=== PATIENT | male | born 1970 | race Caucasian/White ===

== ENCOUNTER → 2019-05-26 | Outpatient (CLI) | payer OTHER, SELFPAY ==
[2019-05-21 09:34] VITALS: BMI 41.4
--- NOTE | 2019-05-26 | ASPIG_PTH ---
PATIENT: DESIRAE BRIGGS Jr. LOC: U#:[id number] AGE/SX: 48/M ROOM: RE05/26/[address]: Dr. Bryan Michel MD : 1970 BED: DIS: 05/26/2019 SPEC #: [id number] RECD: 05/26/19 13:33 STATUS: DASHAWN RENapoleon #: [id number] RATNA: 05/26/19 00:[address]: Bryan Michel DEPT: CYTOLOGY RECD BY: Krunal Pennington ENTERED: 05/26/19 13:33 SP TYPE: ASP OUT OTHR DR: Dr. Jayden Love, DO Tissues: Thyroid gland, NOS Procedures: FNA Specimen Adequacy Special Stain Group II Surgery Specimen Level IV Cytology Other HEADER OPERATION: Ultrasound-guided left thyroid biopsy/aspiration PRE-OP DIAGNOSIS: Thyroid nodule TISSUE SUBMITTED: Ultrasound-guided left thyroid biopsy/aspiration (smears, fluid for cytology and cell block) DIAGNOSIS CYTOLOGY Ultrasound guided fine needle aspiration of left thyroid nodule (smears and cell block): Adequate for evaluation. Negative, consistent with benign follicular nodule. AM:ling 05/27/19 COMMENT The specimen is evaluated at the time of biopsy by Dr. Saini. Immediate Evaluation: Pass 1 - Follicular cells present. Pass 2 - Follicular cells present. Pass 3 - Follicular cells present. CYTOLOGY STUDY Slides are reviewed. CYTOLOGY GROSS Pass 1 - Received is 0.25 ml of reddish fluid labeled with the patient's name, and designated left thyroid. Five imprints and three paps are made from the submitted fluid and the rest is added to CytoLyt for cell block preparation. Submitted for cytology study. Pass 2 - Received is 0.25 ml of reddish fluid labeled with the patient's name, and designated left thyroid. Four imprints and three paps are made from the submitted fluid and the rest is added to CytoLyt for cell block preparation. Submitted for cytology study. Pass 3 - Received is 0.25 ml of reddish fluid labeled with the patient's name, and designated left thyroid. Four imprints and one pap are made from the submitted fluid and the rest is added to CytoLyt for cell block preparation. Submitted for cytology study. / AM:ling 05/26/19 TC:5 CPT: 76721, 23887 x2, 17788
--- NOTE | 2019-05-26 11:55 | US_ITS ---
PROCEDURE: ULTRASOUND GUIDED LEFT THYROID FNA/BIOPSY. DATE: May 26, 2019 INDICATION: Male, 48 years old. Ascites. PHYSICIAN: Bryan Michel M.D. MEDICATIONS: 2% lidocaine administered subcutaneously for local anesthesia. ACCESS SITE: Left - anterior approach. NEEDLE: 25-gauge FNA needle. SPECIMEN: Multiple FNA specimen collected and given to pathology. EBL: None. COMPLICATIONS: None immediate. PROCEDURE: The risks, benefits, and alternatives to the procedure were explained to the patient. The specific risk of hemorrhage requiring further treatment or intervention was detailed and accepted. Written informed consent was obtained. The patient was brought into the ultrasound room and placed in the supine position on the stretcher. An appropriate entry site was identified. The overlying skin was prepped and draped in the usual sterile fashion. 2% lidocaine was administered subcutaneously for local anesthesia. Under ultrasound guidance, a 25-gauge FNA needle was advanced into the lesion. Aspiration was performed and the needle was withdrawn. A total of 4 passes were performed with specimen collected and given to the pathologist who was present during the procedure. Hemostasis was achieved with manual compression. Repeat ultrasound images of the biopsy area was performed which demonstrated no gross bleeding or hematoma. An antibiotic ointment dressing was placed and the patient was given an icepack. The patient tolerated the procedure well without immediate complications. The patient was discharged in stable condition. US/FNA 1st Biopsy w/ US IMPRESSION: Successful ultrasound-guided left thyroid nodule FNA/biopsy, as described above. Electronically Signed: Morgan Kaiser, at 13:56 EST , Service support ,
--- NOTE | 2019-05-26 12:56 | PCM.OPRPT ---
Problem List (1) Solitary thyroid nodule Status: Acute Report of Operation Date of Procedure: 05/26/19 Pre-Operative Diagnosis: Solitary solid left thyroid nodule Post-Operative Diagnosis: Same Surgery/Procedure Performed:: Ultrasound-guided fine-needle aspiration left thyroid nodule Description of Surgical Findings:: Timeout and informed consent was obtained. I attempted this procedure in the office but was not able to visualize it using our ultrasound. The patient was subsequently taken to the ultrasound suite as scheduled. Neck was prepped with chlorhexidine. Ultrasound was performed demonstrating the nodule in question. Under ultrasound guidance 2 cc of 1% lidocaine was used as a local anesthetic. Then under ultrasound guidance a 25-gauge needle was advanced into the lesion and a rapid [id number] motion was performed. Specimen was obtained and handed to Dr. Saini pathology. A total of 4 separate passes were performed. 3 of these separate passes I felt that I was targeted spot on. He tolerated the procedure well. The neck was cleansed. Band-Aid was applied. He was given activity wound care instructions. He will be notified of cytology results as they become available. Bryan Michel M.D., F.A.C.S. Type of Anesthesia:: Local
== END | disposition home or self-care (01) ==
LOC: US 11:48
PROVIDERS: PCP Student in an Organized Health Care Education/Training Program; Referring Provider Surgery; Visit Provider Surgery
DX: E04.1 Nontoxic single thyroid nodule (principal)
CPT/HCPCS: 10005; 88161; 88172; 88305; 88313

== ENCOUNTER → 2019-10-15 | Outpatient (CLI) | payer OTHER, SELFPAY | END | disposition home or self-care (01) | LOC: LAB 17:14 → PSN 17:15 → MTDU 10-16 11:18 | PROVIDERS: PCP Student in an Organized Health Care Education/Training Program; Visit Provider Nurse Practitioner Family | DX: Z11.59 Encounter for screening for other viral diseases (principal); Z20.828 Contact with and (suspected) exposure to other viral communicable diseases | CPT/HCPCS: 87635; 87804; 87807; G2023; U0003 ==

== ENCOUNTER → 2020-05-07 12:48 | Outpatient (CLI) | payer OTHER, SELFPAY ==
--- NOTE | 2020-05-07 12:51 | US_ITS ---
STUDY: THYROID ULTRASOUND REASON FOR EXAM: Male, 49 years old. NODULE TECHNIQUE: Ultrasound evaluation of the thyroid was performed with real-time and static billings-scale imaging. COMPARISON: None. FINDINGS: RIGHT LOBE: The right lobe of the thyroid gland measures 4.5 x 1.9 x 1.8 cm. There is a homogeneous echotexture. There are no demonstrated solid, cystic or complex lesions. LEFT LOBE: The left lobe of the thyroid gland measures 4.2 x 1.7 x 2.2 cm. There is a homogeneous echotexture. Nodule 1:13 x 13 x 13 mm solid isoechoic wider than tall ill-defined marginated nodule with no echogenic foci (TR 3) (likely consistent with an adenoma. ISTHMUS: The isthmus measures 3 mm . The regional lymph nodes are normal. US/Thyroid IMPRESSION: 13 mm probable adenoma in the posterior left lobe. Electronically Signed: Janes Diaz MD at 11:22 EST Tel , Service support ,
== END ==
PROVIDERS: PCP Student in an Organized Health Care Education/Training Program; Referring Provider Surgery; Visit Provider Surgery
DX: E04.1 Nontoxic single thyroid nodule (principal)
CPT/HCPCS: 76536

== ENCOUNTER 2020-12-24 09:54 | Day surgery (SDC) | payer OTHER, SELFPAY ==
[2020-12-24] VITALS (7 sets, daily range): BP systolic 134–146; BP diastolic 81–89; PULSE 59–70; RESP 16; TEMP 36.1–36.7; O2SAT 95–99; BMI 41.2
[2020-12-24] MEDS: Lactated Ringers 1,000 ML 100 ML IV (10:40)
--- NOTE | 2020-12-24 10:53 | HP.PCM_ITS ---
HPI - General HPI Narrative DESIRAE BRIGGS, is a 50 M who presents today for a screening colonoscopy. He had one 5 years prior with no findings. He has a family history of colon cancer in his mother. He is asymptomatic. He has not had COVID-19. He has been vaccinated. [facility] Medical History (Updated 12/24/20 @ 10:[address] Bryan Michel MD) diabetes mellitus type 2 Former smoker GERD (gastroesophageal reflux disease) Hyperlipemia CHERYL on CPAP Osteoarthritis Solitary thyroid nodule Home Medications pravastatin 20 mg PO QHS 09/02/13 [History Last Taken 01/04/15] pantoprazole 40 mg PO BID 01/05/15 [History Last Taken 01/05/15] alum-mag hydroxide-simeth 15 ml PO Q4H PRN PRN #1 bottle 01/06/15 [Rx Last Taken Unknown] cholecalciferol (vitamin D3) 100 mcg (4,000 unit) capsule 4,000 unit PO DAILY 05/13/19 [History Last Taken Unknown] lactobacillus combination no.8 3 billion cell capsule 3,000 mmu cells PO DAILY 05/13/19 [History Last Taken Unknown] verapamil 180 mg 24 hr capsule,extended release mg PO 05/13/19 [History Last Taken 12/23/20] sitagliptin [Januvia] 100 mg PO DAILY 12/24/20 [History Last Taken Unknown] Allergy/AdvReac Type Severity Reaction Status Date / Time No Known Allergies Allergy Verified 12/24/20 10:18 Family History Mother Colon cancer Hypertension Father Heart disease Pacemaker Daughter Cancer thyroid Surgical History History of appendectomy (~1976) History of cholecystectomy (~1995) History of colonoscopy (~09/2015) History of hernia repair (~2002) History of surgical removal of ganglion cyst (~1999) History of tonsillectomy and adenoidectomy (~1970) Status post biopsy of thyroid gland (~05/2019) ROS Constitutional Constitutional: Reports systems reviewed and no addt'l complaints, except as documented Cardiovascular Cardiovascular: Denies chest pain Respiratory/Chest Respiratory/Chest: Denies shortness of breath at rest Gastrointestinal Gastrointestinal: Denies abdominal pain, change in bowel habits, hematochezia or melena Vital Signs Vital Signs Vital Signs: 12/24/20 10:23 Temperature 98.0 F Temperature Source Temporal Pulse Rate 70 Respiratory Rate 16 Respiratory Pattern Normal Blood Pressure Source Monitor Blood Pressure Position Sitting Blood Pressure Location Left Forearm Pulse Ox 99 Oxygen Delivery Method Room Air Weight Weight: 321 lb 6.943 oz Body Mass Index (BMI) 41.2 Physical Exam Const alert, oriented x3 and no apparent distress General Appearance: cooperative and comfortable Eyes General Eye: normal appearance of both eyes Neck General: normal visual inspection Chest inspection of chest normal Resp Effort and Inspection: able to speak in complete sentences and symmetric chest movement Auscultation: clear to auscultation bilaterally Cardio regular rate and regular rhythm GI soft to palpation, non-tender and non-distended Extremity no calf tenderness Neuro oriented x3 Psych thought process normal Assessment & Plan Assessment/Plan (1) Screening for intestinal cancer: PLAN: 50-year-old gentleman with family history of colon cancer in his mother. He presents for screening colonoscopy via open access. He is aware of the technique, benefit, risk, alternatives. He has had an opportunity to ask and have questions answered. We will proceed as noted. Bryan Michel M.D., F.A.C.S.
[2020-12-24 10:55] LABS: Bedside Glucose 130 mg/dL (70-110)
--- NOTE | 2020-12-24 11:49 | OP.COLON_ITS ---
Patient Name: Earl Norton Procedure Date: 12/24/2020 11:24 AM Date of : 1970 Age: 50 Procedure: Colonoscopy Indications: Family history of colon cancer in a first-degree relative Providers: Bryan Michel MD Medicines: See the Anesthesia note for documentation of the administered medications Patient Profile: Last Colonoscopy: 5 years ago. Complications: No immediate complications. Procedure: Pre-Anesthesia Assessment: - Prior to the procedure, a History and Physical was performed, and patient medications and allergies were reviewed. The patient's tolerance of previous anesthesia was also reviewed. The risks and benefits of the procedure and the sedation options and risks were discussed with the patient. All questions were answered, and informed consent was obtained. Prior Anticoagulants: The patient has taken no previous anticoagulant or antiplatelet agents. ASA Grade Assessment: II - A patient with mild systemic disease. After reviewing the risks and benefits, the patient was deemed in satisfactory condition to undergo the procedure. After I obtained informed consent, the scope was passed under direct vision. Throughout the procedure, the patient's blood pressure, pulse, and oxygen saturations were monitored continuously. The adult colonoscope was introduced through the anus and advanced to the cecum, identified by appendiceal orifice and ileocecal valve. The colonoscopy was performed without difficulty. The patient tolerated the procedure well. The quality of the bowel preparation was fair. The ileocecal valve and the appendiceal orifice were photographed. Scope In: 11:29:22 AM Scope Withdrawal Time 0 hours 8 minutes 38 seconds Scope Out: 11:44:25 AM Total Procedure Duration Time 0 hours 15 minutes 3 seconds Findings: The digital rectal exam findings include non-thrombosed external hemorrhoids, non-thrombosed internal hemorrhoids and internal hemorrhoids that prolapse with straining, but spontaneously regress to the resting position (Grade II). Pertinent negatives include normal prostate (size, shape, and consistency). A few diverticula were found in the sigmoid colon. The exam was otherwise without abnormality. Impression: - Preparation of the colon was fair. - Non-thrombosed external hemorrhoids, non-thrombosed internal hemorrhoids and internal hemorrhoids that prolapse with straining, but spontaneously regress to the resting position (Grade II) found on digital rectal exam. - Diverticulosis in the sigmoid colon. - The examination was otherwise normal. - No specimens collected. Recommendation: - Discharge patient to home. - Resume previous diet. - Continue present medications. - Repeat colonoscopy in 5 years for surveillance. Procedure Code(s): --- Professional --- 97766, Colonoscopy, flexible; diagnostic, including collection of specimen(s) by brushing or washing, when performed (separate procedure) Diagnosis Code(s): --- Professional --- K64.1, Second degree hemorrhoids K64.4, Residual hemorrhoidal skin tags Z80.0, Family history of malignant neoplasm of digestive organs K57.30, Diverticulosis of large intestine without perforation or abscess without bleeding CPT copyright 2017 [employer]. All rights reserved. The codes documented in this report are preliminary and upon residential sales consultant review may be revised to meet current compliance requirements. Bryan Michel MD 12/24/2020 11:49:42 AM This report has been signed electronically. Number of Addenda: 0 Note Initiated On: 12/24/2020 11:24 AM
--- NOTE | 2020-12-24 11:51 | OP.CCLET_ITS ---
12/24/2020 Jayden Love [address] [place] [address] Re : Colonoscopy procedure for Earl Norton Dear Dr. Love This procedure was performed on Thursday, December 24, 2020. My impressions and recommendations are as follows: Impressions : - Preparation of the colon was fair. - Non-thrombosed external hemorrhoids, non-thrombosed internal hemorrhoids and internal hemorrhoids that prolapse with straining, but spontaneously regress to the resting position (Grade II) found on digital rectal exam. - Diverticulosis in the sigmoid colon. - The examination was otherwise normal. - No specimens collected. Recommendations : - Discharge patient to home. - Resume previous diet. - Continue present medications. - Repeat colonoscopy in 5 years for surveillance. My findings are described in the full procedure note, which is enclosed. If I can be of further assistance, please feel free to contact me at Doctor phone number(s): Work: . Sincerely, Bryan Michel MD 12/24/2020 11:49:42 AM This report has been signed electronically.
== END 2020-12-24 12:44 | disposition home or self-care (01) ==
LOC: EN 09:57 → AC 09:57
PROVIDERS: PCP Student in an Organized Health Care Education/Training Program; Referring Provider Student in an Organized Health Care Education/Training Program; Visit Provider Surgery
PROC: 0DJD8ZZ Inspection of Lower Intestinal Tract, Via Natural or Artificial Opening Endoscopic (ICD-10-PCS; CPT 45378; principal; 2020-12-24 10:55)
DX: Z12.11 Encounter for screening for malignant neoplasm of colon (principal); K57.30 Diverticulosis of large intestine without perforation or abscess without bleeding; K64.1 Second degree hemorrhoids; Z80.0 Family history of malignant neoplasm of digestive organs; E11.9 Type 2 diabetes mellitus without complications; K21.9 Gastro-esophageal reflux disease without esophagitis; E78.5 Hyperlipidemia, unspecified; M19.90 Unspecified osteoarthritis, unspecified site; G47.30 Sleep apnea, unspecified; Z79.899 Other long term (current) drug therapy; Z87.891 Personal history of nicotine dependence
CPT/HCPCS: 45378; 82962; J7120

== ENCOUNTER → 2022-01-13 | Outpatient (CLI) | payer OTHER, SELFPAY ==
[2022-01-13 16:05] LABS: Absolute Lymphocyte Count 2.89 X10^3/uL (0.83-4.51); Absolute Neutrophil Count 7.6 X10^3/uL (2.0-7.7); Basophil# 0.05 X10^3/uL; Basophil% 0.4 % (0-1); Eosinophils% 0.9 % (0-5); Hematocrit 50.2 % (40-54); Lymphocyte # 2.89 X10^3/ul (0.83-4.51); Lymphocyte % 25.2 % (19-41); Mean Corp Hgb Conc 33.9 g/dL (32-36); Mean Corpuscular Hgb 31.4 pg (27.0-32.0); Mean Corpuscular Volume 92.8 fL (80-94); Mean Platelet Vol. 11.3 fl (6.2-12.0); Monocyte# 0.81 X10^3/uL; Monocyte% 7.1 % (0-10); NRBC Flagged by Analyzer 0 % (0-5); Neutrophil # 7.56 X10^3/uL (2.7-7.7); Platelet Count 175 K/mm3 (150-450); RBC Distribution Width CV 12.9 % (11.6-14.6); RBC Distribution Width SD 44.2 fl (35.1-43.9); Red Blood Count 5.41 M/mm3 (4.6-6.2); White Blood Count 11.5 K/mm3 (4.4-11.0)
[2022-01-13 16:17] LABS: International Normalized Ratio 1.2; Prothrombin Time (Protime)PT. 14.6 SECONDS (11.7-14.9)
[2022-01-13 16:20] LABS: Erythrocyte Sedimentation Rate 24 mm/hr (0-20)
[2022-01-13 16:33] LABS: AST(SGOT) 53 U/L (15-37); Alanine Aminotransfer ALT/SGPT 74 U/L (16-61); Alkaline Phosphatase 213 U/L (45-117); Anion Gap 7 (5-15); BUN 14 mg/dL (7-18); BUN/Creat Ratio 15.1 RATIO (10-20); CRP 6.26 mg/L (0.0-3.0); Calcium,Total 9.2 mg/dL (8.5-10.1); Chloride 107 mmol/L (98-107); Creatinine, Serum 0.93 mg/dL (0.70-1.30); EST Glomerular Filtration Rate 90 mL/min (>60); Est Glom Filt Rate - Afr Amer 109 mL/min (>60); Ferritin 96 ng/mL (26-388); Globulin 4.1 g/dL (2.2-4.2); Glucose 95 mg/dL (74-106); LDH 147 U/L (87-241); Potassium 3.8 mmol/L (3.5-5.1); Protein, Total 8.1 g/dL (6.4-8.2); Sodium Level 140 mmol/L (136-145)
[2022-01-13 18:09] LABS: HIV - WCH Non-Reactive (Nonreactive)
[2022-01-16 15:07] LABS: Anti-Centromere B Ab <0.2 AI (0.0-0.9); Anti-Chromatin <0.2 AI (0.0-0.9); Anti-Jo <0.2 AI (0.0-0.9); Anti-Scleroderma-70 AB <0.2 AI (0.0-0.9); RNP Ab 0.3 AI (0.0-0.9); SJOGREN'S Anti-SS-A test < 0.2 AI (0.0-0.9); SJOGREN'S Anti-SS-B test < 0.2 AI (0.0-0.9); Smith Ab <0.2 AI (0.0-0.9)
[2022-01-16 15:45] LABS: Anti-Mitochondrial AB <20.0 Units (0.0-20.0); Anti-dsDNA Ab <1 IU/mL (0-9)
[2022-01-17 21:07] LABS: Angiotensin Convert Enzyme 31 U/L (14-82); Ceruloplasmin 22.9 mg/dL (16.0-31.0); Cytoplasmic Ab (C-ANCA) <1:20 titer (Neg:<1:20); HEPATITIS B SURFACE AG Negative (Negative); Hep C Antibodies <0.1 s/co ratio (0.0-0.9); Hepatitis A IgM Antibody Negative (Negative); Hepatitis B Core AB IgM Negative (Negative)
[2022-01-18 09:03] LABS: Anti-Smooth Muscle ABS 12 Units (0-19)
[2022-01-18 09:04] LABS: AFP, Tumor Marker 3.4 ng/mL (0.0-8.4); Copper, Serum or Plasma 95 ug/dL (69-132); Haptoglobin 104 mg/dL (29-370); Perinuclear Ab (P-ANCA) <1:20 titer (Neg:<1:20)
== END | disposition home or self-care (01) ==
LOC: LAB 15:19
PROVIDERS: PCP Student in an Organized Health Care Education/Training Program; Visit Provider Internal Medicine Gastroenterology
DX: K76.0 Fatty (change of) liver, not elsewhere classified (principal)
CPT/HCPCS: 36415; 80053; 80074; 82105; 82140; 82164; 82390; 82525; 82728; 83010; 83036; 83516; 83615; 85025; 85610; 85652; 86140; 86225; 86235; 86256; 86703

== ENCOUNTER → 2022-01-20 | Outpatient (CLI) | payer OTHER, SELFPAY ==
--- NOTE | 2022-01-20 08:11 | US_ITS ---
STUDY: ABDOMINAL ULTRASOUND - RIGHT UPPER QUADRANT REASON FOR VISIT: Male, 51 years old . Fatty infiltration of the liver. TECHNIQUE: Ultrasound evaluation of the right upper quadrant was performed with real-time and static billings-scale imaging. TECHNICAL QUALITY: Adequate. COMPARISON: None. FINDINGS: Liver: The liver measures 17 cm. There is increased echogenicity consistent with fatty infiltration. The bile ducts are within normal limits. There is hepatic color flow. The direction of portal flow is hepatopetal. There is no demonstrated mass lesion. Gallbladder: The patient is status post cholecystectomy. Common Bile Duct (C.B.D.): The common bile duct measures 5.1 mm. Pancreas: Normal size of the head, body of the pancreas. The tail portion is obscured due to overlying bowel gas. There is normal echogenicity of the pancreas. There is no demonstrated pancreatic mass or cyst. Right Kidney: Normal size of the right kidney. The right kidney measures 11.6 cm x 6.3 cm x 5.1 cm. Normal renal cortex. The right cortex measures 1.5 cm. There is no demonstrated renal mass or cyst. There is no right hydronephrosis. US/Abdomen Limited IMPRESSION: Fatty infiltration of the liver. Status post cholecystectomy. Electronically Signed: Morgan Kaiser MD at 10:52 EDT ,
--- NOTE | 2022-01-20 08:11 | US_ITS ---
STUDY: ABDOMINAL ULTRASOUND - ELASTOGRAPHY REASON FOR VISIT: Male, 51 years old. Fatty infiltration of the liver. TECHNIQUE: Liver stiffness measurements were obtained on a [employer] RS 85 ultrasound machine using a CA 1-7 probe following the SRU guidelines. 3 measurements were obtained using a 2-D-SWE method. The IQR/M was 19% suggesting a quality data set. TECHNICAL QUALITY: Adequate. COMPARISON: Comparison is made with prior study done earlier in the day. FINDINGS: Liver: There is evidence of fatty infiltration of the liver. Median liver stiffness measured 8 kPa. US/Elastography Parenchyma/Organ IMPRESSION: Liver stiffness measures 8 kPa compatible with F2-F3 (Mild to moderate liver fibrosis) Metavir score. Electronically Signed: Morgan Kaiser MD at 10:55 EDT ,
== END | disposition home or self-care (01) ==
LOC: US 08:07
PROVIDERS: PCP Student in an Organized Health Care Education/Training Program; Referring Provider Internal Medicine Gastroenterology; Visit Provider Internal Medicine Gastroenterology
DX: K76.0 Fatty (change of) liver, not elsewhere classified (principal)
CPT/HCPCS: 76705; 76981

== ENCOUNTER 2022-12-25 05:13 | Emergency (ER) | payer OTHER, SELFPAY ==
[2022-12-25 05:14] VITALS: BP 173/95; PULSE 65; RESP 16; TEMP 36.7; O2SAT 95; BMI 39.4
--- NOTE | 2022-12-25 05:28 | EDS_ITS ---
HPI <Dr. Denis Martin MD - Last Filed: 12/25/22 08:07> History of Present Illness Chief Complaint: Chest Pain Informant: patient Narrative Narrative: Patient presents at 5 AM for intermittent episodes of left-sided chest discomfort that have been off and on for the past week or more. The episodes last 10-20 minutes typically, feels like sharp pain and pressure at the same time, can be associated with facial flushing, but no dyspnea, nausea, vomiting, diaphoresis, lightheadedness, syncope, or arm/jaw discomfort. He has had several episodes this morning, and he was concerned because he checked his blood pressure at home and it was in the 170s as it is here, which is unusual for him. Usually has good blood pressure. No history of heart disease but that is what he is concerned about. Episodes seem to occur at random. Not necessarily with exertion. They have occurred while he was just sitting there at times. He does not have any regular symptoms or issues when he walks up a flight of steps, lightly exerts himself, etc. No recent leg pain or swelling, long travel/immobilization/hospitalization/surgery. No history of DVT or PE. His dad recently had a stent in his 70s. Patient states his doctor scheduled him for a stress test this January as a routine because it has been several years since he has had 1 and he has some risk factors. CVD Risk Factors: Positive for Diabetes, Hypercholesterolemia and Smoking (Former); Negative for Hypertension or Family History 1' </=55 PE Risk Factors: Negative for Recent Travel/Surgery, Recent Immobilization, Kylie or DVT or PE, Cancer or OCP + Smoking + >/=35 [facility] <Dr. Denis Martin MD - Last Filed: 12/25/22 08:07> [facility] Medical History Aortic valve disorder diabetes mellitus type 2 Fatty infiltration of liver Former smoker GERD (gastroesophageal reflux disease) Hyperlipemia LFT elevation Mitral valve disorder Obesity, Class III, BMI 40-49.9 (morbid obesity) CHERYL on CPAP Osteoarthritis Solitary thyroid nodule Home Medications pravastatin 10 mg tablet 20 mg PO QHS 09/02/13 [History Last Taken 01/04/15] pantoprazole 40 mg tablet,delayed release 40 mg PO BID 10/06/15 [History Last Taken 01/05/15] cholecalciferol (vitamin D3) 100 mcg (4,000 unit) capsule 4,000 unit PO DAILY 05/13/19 [History Last Taken Unknown] lactobacillus combination no.8 3 billion cell capsule (Adult Probiotic) 3,000 mmu cells PO DAILY 05/13/19 [History Last Taken Unknown] verapamil 180 mg 24 hr capsule,extended release 180 mg PO DAILY 05/13/19 [History Last Taken 12/23/20] sitagliptin phosphate 100 mg tablet (Januvia) 100 mg PO DAILY 12/24/20 [History Last Taken Unknown] acyclovir 400 mg tablet 400 mg PO BID 11/22/21 [History Last Taken Unknown] aspirin 81 mg tablet,delayed release (Adult Aspirin Regimen) 81 mg PO DAILY 11/22/21 [History Last Taken Unknown] dexamethasone sodium phosphate 0.1 % eye drops 1 drp otic (ear) ONCE 11/22/21 [History Last Taken Unknown] empagliflozin 25 mg tablet (Jardiance) 25 mg PO QAM 11/22/21 [History Last Taken Unknown] Allergy/AdvReac Type Severity Reaction Status Date / Time No Known Allergies Allergy Verified 12/25/22 05:16 Family History (Updated 11/22/21 @ 15:43 by Geeta Stuart) Mother Colon cancer Hypertension Father Heart disease Pacemaker Daughter Cancer thyroid Grandmother Lung cancer CVA (cerebral vascular accident) Aunt Diabetes Surgical History History of appendectomy (~1976) History of cholecystectomy (~1995) History of colonoscopy (~09/2015) History of esophagogastroduodenoscopy (EGD) History of hernia repair (~2002) History of surgical removal of ganglion cyst (~1999) History of tonsillectomy and adenoidectomy (~1970) Status post biopsy of thyroid gland (~05/2019) Social History Smoking Status: Former smoker alcohol intake: never substance use type: does not use ROS <Dr. Denis Martin MD - Last Filed: 12/25/22 08:07> ROS ED Constitutional Constitutional ED: Denies chills or fever(s) Eyes Eyes: Denies change in vision or diplopia ENT ENT ED: Reports other Details: facial flushing ; Denies rhinorrhea or sore throat Cardiovascular Cardiovascular: Reports chest pain; Denies palpitations Respiratory/Chest Respiratory/Chest: Denies cough or dyspnea Gastrointestinal Gastrointestinal: Denies abdominal pain, diarrhea, nausea or vomiting Genitourinary Genitourinary ED: Denies dysuria or hematuria Musculoskeletal Musculoskeletal: Denies back pain or neck pain Integumentary Denies abscess or rash Neurologic Neurologic: Denies headache(s), paresthesias or weakness Psychiatric Psychiatric: Denies anxiety or suicidal thoughts EXAM <Dr. Denis Martin MD - Last Filed: 12/25/22 08:07> Physical Exam Const Vital Signs: 12/25/22 05:14 12/25/22 05:18 12/25/22 05:27 Temperature 98.1 F Temperature Source Temporal Pulse Rate 65 Respiratory Rate 16 Respiratory Effort Normal Blood Pressure 173/95 H Blood Pressure Mean 121 Pulse Ox 95 Oxygen Delivery Method Room Air 12/25/22 07:38 Temperature Temperature Source Pulse Rate 63 Respiratory Rate 16 Respiratory Effort Blood Pressure 146/81 H Blood Pressure Mean 102 Pulse Ox 94 Oxygen Delivery Method Room Air Positive well nourished and well developed General Appearance ED: well developed and NAD HEENT Reports moist mucous membranes normocephalic and atraumatic Eyes PERRL and EOMs intact bilaterally Neck full ROM and supple Chest Wall inspection of chest normal and palpation of chest normal Resp normal respiratory effort and clear to auscultation bilaterally Cardio regular rate and regular rhythm Rate: Negative for tachycardic Heart Sounds: murmur systolic II/ soft left sternal border GI non-tender and non-distended Auscultation: normoactive bowel sounds Palpation: soft Back/Spine no CVA tenderness General Back: other FROM Extremity normal to inspection and no calf tenderness General Extremety ED: Negative for edema, pulses abnormal or tenderness General Extremity: Negative for edema or pulses abnormal Neuro oriented x3, CN's II-XII intact bilaterally and no sensory deficits noted Sensorium / Orientation: awake and alert Motor Exam: strength 5/5 throughout Skin no rashes or lesions noted and no wounds <Osmel López MD - Last Filed: 12/25/22 08:37> Physical Exam Const Vital Signs: 12/25/22 05:14 12/25/22 05:18 12/25/22 05:27 Temperature 98.1 F Temperature Source Temporal Pulse Rate 65 Respiratory Rate 16 Respiratory Effort Normal Blood Pressure 173/95 H Blood Pressure Mean 121 Pulse Ox 95 Oxygen Delivery Method Room Air 12/25/22 07:38 Temperature Temperature Source Pulse Rate 63 Respiratory Rate 16 Respiratory Effort Blood Pressure 146/81 H Blood Pressure Mean 102 Pulse Ox 94 Oxygen Delivery Method Room Air <Dr. Denis Martin MD - Last Filed: 12/25/22 08:07> Heart Score History: Moderately Suspicious ECG: Normal Age: >45 - <65 years Risk Factors: >/= 3 Risk Factors or History of CAD Troponin: </= Normal Limit Score: 4 <Osmel López MD - Last Filed: 12/25/22 08:37> Heart Score Score: 4 MDM <Dr. Denis Martin MD - Last Filed: 12/25/22 08:07> MDM MDM Narrative Medical decision making narrative: Patient has atypical symptoms, unlikely to be unstable angina although it is certainly in the differential diagnosis especially given the patient being a diabetic who are more likely to have unusual symptoms. Therefore cardiac work- up is still obtained, esophageal and musculoskeletal disorders certainly in the differential as well. Although the patient was initially hypertensive in triage 173/95, on recheck without specifically treating it or anything else since the patient's pain went away spontaneously, his blood pressure is 135 systolic. Chest x-ray 1 view my interpretation negative for any acute findings including pneumonia. His troponin is within normal limits. When I reexamined him he said that currently the discomfort is not there but it has been coming and going. I think waiting for 2-hour troponin would be most reasonable, and if negative he can be discharged home with close outpatient follow-up. He is comfortable with that plan, and while waiting for the repeat he is given a dose of hyoscyamine.. His heart score is 4, but this is only because of his risk factors which include the fact that he is a former smoker. Lab Data Attestation: I reviewed the patient's lab results. Labs: Laboratory Results - last 24 hr 12/25/22 12/25/22 05:30 08:00 WBC 8.9 RBC 5.59 Hgb 17.7 H Hct 52.0 MCV 93.0 MCH 31.7 MCHC 34.0 RDW Std Deviation 44.7 H RDW Coeff of Kayce 13.2 Plt Count 136 L MPV 11.7 Immature Gran % (Auto) 0.700 Neut % (Auto) 70.0 Lymph % (Auto) 19.1 Ocean % (Auto) 8.7 Eos % (Auto) 0.9 Baso % (Auto) 0.6 Absolute Neuts (auto) 6.3 Absolute Lymphs (auto) 1.71 Nucleated RBC % 0 Sodium 139 Potassium 3.7 Chloride 106 Carbon Dioxide 27.0 Anion Gap 6 BUN 13 Creatinine 1.03 Estim Creat Clear Calc 95.32 Est GFR (MDRD) Af Amer 97 Est GFR (MDRD) Non-Af 80 BUN/Creatinine Ratio 12.6 Glucose 160 H Calcium 9.1 Troponin I High Sens 5 5 Radiography Diagnostic Testing: Clinical Impression(s) from Imaging Studies Chest X-Ray 12/25/22 05:38 IMPRESSION: Atherosclerotic disease Electronically Signed: Jim Aquino MD at 5:56 EDT , Rhythm Strip Rhythm Strip: Sinus Rhythm Rate: 56 Ectopy: None EKG Initial EKG: Attestation: I personally reviewed and interpreted this EKG as follows: Interpretation: Sinus Rhythm and No Acute Injury Pattern Comments: RSR', otherwise nml Prior EKG tracings: available for review Prior: Unchanged <Osmel López MD - Last Filed: 12/25/22 08:37> [facility] Narrative Medical decision making narrative: Patient has atypical symptoms, unlikely to be unstable angina although it is certainly in the differential diagnosis especially given the patient being a diabetic who are more likely to have unusual symptoms. Therefore cardiac work- up is still obtained, esophageal and musculoskeletal disorders certainly in the differential as well. Although the patient was initially hypertensive in triage 173/95, on recheck without specifically treating it or anything else since the patient's pain went away spontaneously, his blood pressure is 135 systolic. Chest x-ray 1 view my interpretation negative for any acute findings including pneumonia. His troponin is within normal limits. When I reexamined him he said that currently the discomfort is not there but it has been coming and going. I think waiting for 2-hour troponin would be most reasonable, and if negative he can be discharged home with close outpatient follow-up. He is comfortable with that plan, and while waiting for the repeat he is given a dose of hyoscyamine.. His heart score is 4, but this is only because of his risk factors which include the fact that he is a former smoker. Dr. López: Patient endorsed to me by Dr. Martin to check the repeat troponin on this patient having chest pain. I reviewed his previous troponin it was 5. Repeat troponin is also 5 for a delta of 0. Based on his negative troponins, I do feel that he can be discharged safely home with follow-up to his primary care provider. Disposition is discharged as planned. Return instructions to the emergency department were reviewed. Patient is in stable condition. Lab Data Labs: Laboratory Results - last 24 hr 12/25/22 12/25/22 05:30 08:00 WBC 8.9 RBC 5.59 Hgb 17.7 H Hct 52.0 MCV 93.0 MCH 31.7 MCHC 34.0 RDW Std Deviation 44.7 H RDW Coeff of Kayce 13.2 Plt Count 136 L MPV 11.7 Immature Gran % (Auto) 0.700 Neut % (Auto) 70.0 Lymph % (Auto) 19.1 Ocean % (Auto) 8.7 Eos % (Auto) 0.9 Baso % (Auto) 0.6 Absolute Neuts (auto) 6.3 Absolute Lymphs (auto) 1.71 Nucleated RBC % 0 Sodium 139 Potassium 3.7 Chloride 106 Carbon Dioxide 27.0 Anion Gap 6 BUN 13 Creatinine 1.03 Estim Creat Clear Calc 95.32 Est GFR (MDRD) Af Amer 97 Est GFR (MDRD) Non-Af 80 BUN/Creatinine Ratio 12.6 Glucose 160 H Calcium 9.1 Troponin I High Sens 5 5 Radiography Diagnostic Testing: Clinical Impression(s) from Imaging Studies Chest X-Ray 12/25/22 05:38 IMPRESSION: Atherosclerotic disease Electronically Signed: Jim Aquino MD at 5:56 EDT , Discharge Plan Triage Chief Complaint: Chest Pain ED Provider: Denis Martin Dx/Rx/DC Orders Clinical Impression: Intermittent left-sided chest pain Instructions: ED Chest Pain, Uncertain Cause Prescriptions: No Action verapamil 180 mg capsule,ext rel. pellets 24 hr 180 mg PO DAILY cholecalciferol (vitamin D3) 4,000 unit capsule 4,000 unit capsule 4,000 unit PO DAILY Adult Probiotic 3 billion cell capsule 3,000 mmu cells PO DAILY Rx Instructions: administer with a meal acyclovir 400 mg tablet 400 mg PO BID Patient Comments: TAKE 1 TABLET BY MOUTH TWICE DAILY aspirin [Adult Aspirin Regimen] 81 mg tablet,delayed release (DR/EC) 81 mg PO DAILY dexamethasone sodium phosphate 0.1 % drops 1 drp otic (ear) ONCE Jardiance 25 mg tablet 25 mg PO QAM pravastatin 10 MG tablet 20 mg PO QHS Patient Comments: CHOLESTROL LOWERING pantoprazole 40 MG tablet 40 mg PO BID Patient Comments: acid reflux Januvia 100 mg Tablet 100 mg PO DAILY Primary Care Provider: Jayden Love Referrals: Jayden Love DO [Primary Care Provider] - As soon as possible Disposition Disposition: Home, Self Care
--- NOTE | 2022-12-25 05:38 | RAD_ITS ---
INDICATION: chest pain EXAMINATION/TECHNIQUE: X-RAY - XR Chest 1 View COMPARISON: Chest x-ray from 01/05/2015 FINDINGS: LINES/DEVICES: None. LUNGS: No pulmonary edema or focal airspace consolidation. No sizable pleural effusion. No pneumothorax detected. MEDIASTINUM AND CARDIOVASCULAR STRUCTURES: Heart size within normal limits. Atherosclerotic calcifications along aortic arch. BONES AND SOFT TISSUES: No acute findings. RAD/Chest 1 View (Portable) IMPRESSION: Atherosclerotic disease Electronically Signed: Jim Aquino MD at 5:56 EDT ,
[2022-12-25 05:52] LABS: Absolute Lymphocyte Count 1.71 X10^3/uL (0.83-4.51); Absolute Neutrophil Count 6.3 X10^3/uL (2.0-7.7); Basophil# 0.05 X10^3/uL; Basophil% 0.6 % (0-1); Eosinophil# 0.08 X10^3/uL; Eosinophils% 0.9 % (0-5); Hemoglobin 17.7 g/dL (13.0-16.5); Lymphocyte # 1.71 X10^3/ul (0.83-4.51); Lymphocyte % 19.1 % (19-41); Mean Corpuscular Hgb 31.7 pg (27.0-32.0); Mean Platelet Vol. 11.7 fl (6.2-12.0); Monocyte# 0.78 X10^3/uL; Monocyte% 8.7 % (0-10); NRBC Flagged by Analyzer 0 % (0-5); Neutrophil # 6.26 X10^3/uL (2.7-7.7); POSITIVE COUNT YES; Platelet Count 136 K/mm3 (150-450); RBC Distribution Width CV 13.2 % (11.6-14.6); RBC Distribution Width SD 44.7 fl (35.1-43.9); Red Blood Count 5.59 M/mm3 (4.6-6.2); White Blood Count 8.9 K/mm3 (4.4-11.0)
[2022-12-25 05:57] LABS: Differential Indicated SCAN CRITERIA MET
[2022-12-25 06:08] LABS: Anion Gap 6 (5-15); BUN 13 mg/dL (7-18); BUN/Creat Ratio 12.6 RATIO (10-20); Calcium,Total 9.1 mg/dL (8.5-10.1); Chloride 106 mmol/L (98-107); Creatinine, Serum 1.03 mg/dL (0.70-1.30); EST Glomerular Filtration Rate 80 mL/min (>60); Est Glom Filt Rate - Afr Amer 97 mL/min (>60); Estimated Creatinine Clearance 95.32 ml/min; Glucose 160 mg/dL (74-106); Potassium 3.7 mmol/L (3.5-5.1); Sodium Level 139 mmol/L (136-145); Troponin-I HS (w/2H Reflex) 5 pg/mL (3.0-78.0)
[2022-12-25 07:38] VITALS: BP 146/81; PULSE 63; RESP 16; O2SAT 94
[2022-12-25 07:47] LABS: Reflex Troponin-HS? (from REC) Y
[2022-12-25] MEDS: Hyoscyamine Sulfate 0.125 MG Tablet 0.25 MG PO (07:53)
[2022-12-25 08:21] LABS: Troponin-I HS 5 pg/mL (3.0-78.0)
[2022-12-25 09:00] VITALS: BP 134/87; PULSE 78; RESP 16; O2SAT 98
== END 2022-12-25 09:02 | disposition home or self-care (01) ==
PROVIDERS: Emergency Provider Emergency Medicine; PCP Student in an Organized Health Care Education/Training Program; Visit Provider Emergency Medicine
DX: R07.89 Other chest pain (principal); E11.9 Type 2 diabetes mellitus without complications; E78.00 Pure hypercholesterolemia, unspecified; Z87.891 Personal history of nicotine dependence
CPT/HCPCS: 71045; 80048; 84484; 85025; 93005; 99283; A4216

== ENCOUNTER → 2023-01-05 | Outpatient (CLI) | payer OTHER, SELFPAY ==
--- NOTE | 2023-01-05 12:09 | ECHOD_ITS ---
Reason For Study: Chest Pain, VO Procedure This was a 2D Doppler, Color Flow transthoracic echocardiogram. Exam performed in department. Left Ventricle Normal LV size. Left ventricular systolic function is normal. The estimated ejection fraction is 65 %. No regional wall motion abnormalities noted. Right Ventricle Normal RV size. Normal systolic function. Atria Normal left atrium. Normal right atrium. Mitral Valve Normal mitral valve. Tricuspid Valve Normal tricuspid valve. Mild tricuspid valve insufficiency. Pulmonary artery systolic pressure is 30 mmHg. Aortic Valve Mild focal aortic valve calcification. Peak aortic valve gradient 21 mmHg. Mean aortic valve gradient 12 mmHg. Mild aortic stenosis. Pulmonic Valve Normal pulmonic valve. Great Vessels Normal aortic root. The pulmonary artery is normal size. Normal inferior vena cava. Pericardium/Pleural No pericardial effusion. MMode/2D Measurements & Calculations LVIDd: 4.6 cm IVSd: 1.2 cm LVOT diam: 2.1 cm LVIDs: 3.0 cm LVPWd: 1.1 cm LVOT area: 3.5 cm2 RVDd: 4.0 cm FS: 34.9 % Ao root diam: 3.6 cm LAV(MOD-bp): 26.8 ml LVAd ap4: 28.3 cm2 LAV(MOD-bp) Indexed: 10.2 ml/m2 LVLd ap4: 8.8 cm LAV(MOD-sp2): 27.2 ml EDV(MOD-sp4): 77.9 ml LAV(MOD-sp4): 24.5 ml EDV(sp4-el): 77.2 ml LVAs ap4: 14.5 cm2 LVLs ap4: 6.8 cm ESV(MOD-sp4): 27.7 ml ESV(sp4-el): 26.4 ml EF(MOD-sp4): 64.4 % EF(sp4-el): 65.8 % SV(MOD-sp4): 50.2 ml SV(sp4-el): 50.8 ml LA A4 area: 12.1 cm2 LA dimension(2D): 3.7 cm RA A4 area: 10.9 cm2 TAPSE: 1.6 cm Time Measurements MV dec time: 0.19 sec Doppler Measurements & Calculations MV E max bro: 82.2 cm/sec Lat Peak E' Bro: 12.5 cm/sec Med Peak E' Bro: 7.9 cm/sec MV A max bro: 60.5 cm/sec E/E' lat: 6.6 E/E' med: 10.5 MV E/A: 1.4 Ao V2 max: 229.0 cm/sec LV V1 max: 87.2 cm/sec MV dec slope: 434.6 cm/sec2 Ao max P.0 mmHg LV V1 max P.0 mmHg Ao V2 mean: 163.5 cm/sec LV V1 mean P.1 mmHg Ao mean P.9 mmHg LV V1 mean: 69.5 cm/sec Ao V2 VTI: 48.5 cm LV V1 VTI: 19.6 cm AV (velocity ratio): 0.40 KOBY(I,D): 1.4 cm2 KOBY(V,D): 1.3 cm2 SV(LVOT): 67.5 ml PA V2 max: 74.3 cm/sec PI end-d bro: 122.4 cm/sec TR max bro: 260.6 cm/sec TR max P.2 mmHg ECHO/Echo Complete Interpretation Summary Normal LV size. Left ventricular systolic function is normal. The estimated ejection fraction is 65 %. Pulmonary artery systolic pressure is 30 mmHg. Mean aortic valve gradient 12 mmHg. Mild focal aortic valve calcification. Mild aortic stenosis. Ordering Physician: Jayden Love Referring Physician: Jayden Love Performed By: Amy Meraz RDCS, RVT
--- NOTE | 2023-01-05 17:44 | STRESSREP ---
Stress Test Report Exercise stress test. 52-year-old man with a history of chest pain Stress protocol: Resting EKG demonstrates normal sinus rhythm with a rate of 56 bpm resting blood pressure is 112/80 mmHg. The patient exercised according to the regular Vern protocol for a total duration of 8 minutes and 15 seconds attaining a maximum heart rate of 125 bpm which was 75% of maximum predicted heart rate; the maximum workload was 10.1 metabolic equivalents. At rest there were no ST or T wave changes noted to suggest ischemia and at peak exercise upsloping ST changes only were noted which did not meet the criteria for ischemia. No clinical angina was noted the test was terminated due to the target heart rate being achieved/fatigue. The peak blood pressure was 170/80 mmHg. Rate-pressure product was 17,000. Conclusion: Exercise stress test with no EKG criteria for ischemia at a high workload No arrhythmias noted. No chest pain noted during exercise but during recovery patient experienced mild midsternal chest discomfort.
== END | disposition home or self-care (01) ==
PROVIDERS: PCP Student in an Organized Health Care Education/Training Program; Referring Provider Student in an Organized Health Care Education/Training Program; Visit Provider Student in an Organized Health Care Education/Training Program
DX: E11.9 Type 2 diabetes mellitus without complications (principal); R07.9 Chest pain, unspecified; R06.09 Other forms of dyspnea
CPT/HCPCS: 93017; 93306

== ENCOUNTER → 2023-02-19 | Outpatient (CLI) | payer SELFPAY ==
--- NOTE | 2023-02-19 07:52 | CT_ITS ---
STUDY: CT CHEST WITHOUT CONTRAST REASON FOR EXAM: Male, 52 years old. DM, CV DISORDERS, CP, FATIGUE, VO RADIATION DOSAGE (If Supplied By Facility): CTDIvol = ( 22.58 ) mGy, DLP = ( 406.46 ) mGycm TECHNIQUE: Transaxial imaging was performed without the administration of intravenous contrast material. Individualized dose optimization techniques were used for this CT. COMPARISON: No relevant priors. FINDINGS: CHEST Mild increased markings in the right middle lobe and lingular segment of the left upper lobe as well as at the lung bases suggests orbital scarring. Minimal bilateral pleural effusions. There are calcifications of the coronary arteries. There are small lymph nodes within the mediastinum, which are normal in size and morphology most compatible with reactive lymph hyperplasia. Normal hilar regions. Normal unenhanced pulmonary arteries. Atherosclerotic plaque formation of the descending thoracic aorta. Normal osseous structures. Prior cholecystectomy. CT/Limited Chest CT Cardiac Only IMPRESSION: Coronary artery calcification. Minimal bilateral pleural effusions. Electronically Signed: Morgan Kaiser MD at 8:45 EST ,
--- NOTE | 2023-02-19 16:03 | CA.SCORE ---
Calcium Scoring Date of Study:: 02/19/23 Coronary Calcium Scoring: High-resolution Computed Tomographic imaging of the chest was performed on [02/19/23 ], with particular attention paid to the coronary arteries. Images from the examination were analyzed for the presence and extent of coronary artery calcification , using coronary calcium quantification software. The patient tolerated the procedure well and there were no complications. The results of the coronary calcification analysis are provided below. Findings Coronary Artery Left Main (LM): 45 Left Anterior Descending (LAD): 0 Left Circumflex (LCX): 94 Right Coronary Artery (RCA): 986 Total Agatston Score: 1,125 Percentile Ranking: Greater than 90th percentile Calcium Scoring Interpretation: Different methods to categorize the overall amount of coronary plaque. Overall amount CAC SIS Visual of coronary plaque P1 Mild -100 <2 1-2 vessels with mild amount of plaque P2 Moderate 101-300 3-4 1-2 vessels with moderate amount, 3 vessels with mild amount of plaque P3 Severe 301-999 5-7 3 vessels with moderate amount, 1 vessel with severe amount of plaque P4 Extensive >1000 >8 2-3 vessels with severe amount of plaque Conclusion: Extensive atherosclerotic plaquing noted with probably 2-3 vessels with extensive amount of plaquing
== END | disposition home or self-care (01) ==
LOC: CT 07:52
PROVIDERS: PCP Student in an Organized Health Care Education/Training Program; Referring Provider Student in an Organized Health Care Education/Training Program; Visit Provider Student in an Organized Health Care Education/Training Program
DX: Z13.6 Encounter for screening for cardiovascular disorders (principal); E11.9 Type 2 diabetes mellitus without complications; R07.89 Other chest pain; R53.83 Other fatigue; R06.09 Other forms of dyspnea
CPT/HCPCS: 75571; 76380

== ENCOUNTER → 2023-06-11 | Outpatient (CLI) | payer OTHER, SELFPAY ==
--- NOTE | 2023-06-11 12:52 | CR.HP_ITS ---
CR - History & Physical General Arrival date:: 06/11/23 Arrival time:: 12:52 Date of Referral:: 05/02/23 Date of CR Evaluation:: 06/11/23 Referring Physician: Dr. José Luis Guadarrama Primary Diagnosis: PTCA or Stent History of Present Cardiac Event Onset Date Vessel: Ramus PTCA or coronary stenting:: Yes Medications Ambulatory Orders Medication Instructions Recorded pravastatin 10 mg tablet 20 mg PO QHS 09/02/13 pantoprazole 40 mg tablet,delayed 40 mg PO BID 01/05/15 release cholecalciferol (vitamin D3) 100 4,000 unit PO DAILY 05/13/19 mcg (4,000 unit) capsule lactobacillus combination no.8 3 3,000 mmu cells PO DAILY 05/13/19 billion cell capsule (Adult Probiotic) verapamil 180 mg 24 hr 180 mg PO DAILY 05/13/19 capsule,extended release sitagliptin phosphate 100 mg 100 mg PO DAILY 12/24/20 tablet (Januvia) acyclovir 400 mg tablet 400 mg PO BID 11/22/21 aspirin 81 mg tablet,delayed 81 mg PO DAILY 11/22/21 release (Adult Aspirin Regimen) dexamethasone sodium phosphate 0.1 1 drp otic (ear) ONCE 11/22/21 % eye drops empagliflozin 25 mg tablet 25 mg PO QAM 11/22/21 (Jardiance) Allergies Allergies No Known Allergies Allergy (Verified 12/25/22 05:16) Sleep Disorder Evaluation Hx of Sleep Apnea: Yes Do you snore loudly (louder than talking or can be heard through closed doors)?: Yes Do you often feel tired/ fatigued/ sleepy during daytime?: No Has anyone observed you stop breathing during sleep?: No History of Hypertension (for STOP score): Yes STOP Results: Positive Advanced Directives Advanced Directives Power of Sales And Marketing Director: Yes Living Will: Yes Advance Directives Information Provided: Yes Advance Directives on File: No DNR Order?:: No Past Medical History Covid-19 Screening Physicial Symptoms Other Clinical Concerns Exposure Risk Pertinent Comorbidities Has a serious heart condition:: Yes Diabetic:: Yes Past Medical Illness Medical History Aortic valve disorder diabetes mellitus type 2 Fatty infiltration of liver Former smoker GERD (gastroesophageal reflux disease) Hyperlipemia LFT elevation Mitral valve disorder Obesity, Class III, BMI 40-49.9 (morbid obesity) CHERYL on CPAP Osteoarthritis Solitary thyroid nodule Past Surgical History Surgical History History of appendectomy (~1976) History of cholecystectomy (~1995) History of colonoscopy (~09/2015) History of esophagogastroduodenoscopy (EGD) History of hernia repair (~2002) History of surgical removal of ganglion cyst (~1999) History of tonsillectomy and adenoidectomy (~1970) Status post biopsy of thyroid gland (~05/2019) Surgical History: - (Hernia repair, cholecystectomy, appendectomy, tonsillectomy) Family History Summary Family History (Updated 11/22/21 @ 15:43 by Geeta Stuart) Mother Colon cancer Hypertension Father Heart disease Pacemaker Daughter Cancer thyroid Grandmother Lung cancer CVA (cerebral vascular accident) Aunt Diabetes Social History Smoking History Smoking Status: Former smoker Years Smokin Packs Smoked per Day: 1.5 (stopped in 2008) Alcohol Use Alcohol Usage: Yes Occupation Occupation (List type of work in comments):: Employed Hours worked per day:: 9 Hobbies, Recreation, Social Activities Hobbies: Other (grandkids) Recreational Activities: I am able to engage in all my recreational activities Social Environment Status Marital Status: Current Living Arrangements Living Environment:: Spouse Children How many children do you have?: 4 Do any of your children live nearby?: Yes Safety Do you feel safe in your surroundings?: Yes Assistance Do you need any assistance at home?: no Review of Systems Review of Systems Hints Review of Present Symptoms: Reports Shortness of Breath with Exertion, Angina, Fatigue, Appetite - Normal and Sleep - Normal; Denies Shortness of Breath at Rest, PVD, Operative Discomfort, Wound Healing, Dizziness/Lightheadedness, Heart Arrhythmia/Irregularities, Appetite - Special Diet or Sexual Changes Pain Is Patient Pain Free?: No Pain Location: other (knees) Pain Level: 3/10 Risk Factor Assessment Chief Complaint Chief Complaint: PTCA or stent Vital Signs Pulse Ox: 100 Pulse Pulse Rate: 63 Pulse Rhythm: Regular Hypertension How long have you been treated?: 3 months Blood Pressure Sitting - Right Arm: 104/64 Diabetes Diabetic History: Type II Nutrition Referral for Diabetes: Yes Obesity Height: 6 ft 2 in Weight:: 305 lb Weight in Pounds: 305.0 lbs Body Mass Index (BMI): 39.1 Nutritional Referral for Obesity: Yes Physical Inactivity Physical Inactivity: Recreational activity (walking) Risk Stratification Risk Guidelines: Lowest Risk: Risk Factor for Smoking, Moderate Risk: Risk Factor for Sedentary Lifestyle and Risk Factor for Depression and Highest Risk: Risk Factor for Dyslipidemia, Risk Factor for Diabetes, Risk Factor for Obesity and Risk Factor for Hypertension For Smoking Smoking Risk Guidelines For Dyslipidemia Dyslipidemia Risk Guidelines For Diabetes Mellitus Diabetes Risk Guidelines For Obesity/Overweight Obesity/Overweight Risk Guidelines For Hypertension Hypertension Risk Guidelines For Sedentary Lifestyle Sedentary Lifestyle Risk Guidelines For Depression Depression Risk Guidelines Family History Family History (Updated 11/22/21 @ 15:43 by Geeta Stuart) Mother Colon cancer Hypertension Father Heart disease Pacemaker Daughter Cancer Grandmother Lung cancer CVA (cerebral vascular accident) Aunt Diabetes Motivation Motivation to Participate On a scale of 1 to 10, how prepared are you to commit to attending program?: 5 What do you see as barriers to successfully being able to complete the program?: no What do you see as the benefits of succesfully completing the program? In other words, what do you hope to get out of participating in the program?: more energy, improved health Are there issues you are dealing with that will interfere with completing the program?: no Do you have a spouse or signficant other, family or friends who will help support you to complete the program?: yes
[2023-06-11 13:04] VITALS: PULSE 63; O2SAT 100
[2023-06-11 13:08] VITALS: BP 104/64
--- NOTE | 2023-06-11 13:08 | PCM.CR.ITP ---
Diagnosis General Information Admitting Diagnosis: PTCA or Stent Personal Learning Style:: Audio/Visual Stage of change r/t lifestyle modifications:: Contemplation Gave educational material for:: Treating Heart Disease, How The Heart Works, What it means to have Heart Disease, How Coronary Artery Disease is Diagnosed, Heart Procedures, What Heart Medications Do, Risk Factors & Modifications, Living an Active Life, Nutrition, Emotions & Heart Disease, Stress Management & Relaxation and Sleep Disorders & Heart Disease Education/Goals Cardiac Rehabilitation Goals Personal Goals: Initial Assessment: Improve muscle strength and endurance, Improve diet and eating habits (eat healthier) and Control risk factors (learn risk factor modification) Scale for measuring improvement of personal goals Diagnosis & Disease Process Outcomes/Goals: Pt IDs own risk factors & lifestyle modifications by Session 10, Verbalizes symptoms of angina & response by session 3., Pt independently manages and Other Additional Outcomes/Goals: Plan/Interventions: Assist Pt to ID & engage in lifestyle modification to reduce CVD risk, Instruct on individual risk factors, Review symptoms of angina & emergency actions, Review secondary diagnosis & identify educational needs. and Other see comment 30 day Reassessments:: Not Met 30 day Reassessments:: Not Met 30 day Reassessments:: Not Met 30 day Reassessments:: Not Met Final Reassessments:: Not Met Safety Referral to Physical Therapy: No Referral to [facility] Case Management: No Fall Risk Assessed:: Yes Assistive Devices:: None Exercise - Initial Assessment Visit Date of Eval: 06/11/23 (initial eval) Mets: Pre-: >3 METS for 30 minutes by discharge, >5 METS for 30 minutes by discharge, >7 METS for 30 minutes by discharge and Unable to meet goal due to: (see comment below) Physician Prescribed Exercise Modalities: Treadmill, Rower, Airdyne, NuStep, SciFit and Lateral [place] Frequency: 2x/week for 18 weeks [36 sessions] and 3x/week for 12 weeks [36 sessions] Intensity: 60-80% of age predicted maximum heart rate reserve Duration: 30 - 45 minutes Current METSs:: 3 Target Heart Rate:: 100-116 Resting Blood Pressure: 104/64 EKG Type: NSR RBBB Outcomes & Goals Goals:: Verbalizes understanding of THR, RPE & goal METS by session 6, Documents in home exercise log/reports 30 min aerobic 5 day/wk by DC, Demonstrates accurate pulse taking by DC and Other additional outcome/goals: see below Intervention & Plan Exercise Program Goals: Instruct on personal THR & RPE, Instruct on MET level & personal MET goal, Show patient to take own pulse /validate performance until accurate, Instruct on home exercise and Other additional plan/int Physical Activity Home Exercise Physical Activity - Home Exercise: Safe Exercise, Warm-up, Self-monitoring, Cool-Down, Home Exercise > 30 min Daily and Sitting Time <3 hours/daily Outcomes & Goals Outcomes/Goals: Demonstrates correct Warm-up/exercise Cool-Down (S3) if = 2.5 METs, Verbalizes symptoms of exercise intolerance by Session 3 (S3), Demonstrate safe equipment use (S3) & follows exercise prescrition (6) and Other: See below Intervention & Plan Plan/Intervention: Instruct warm-up & cool-down if exercising at > 2 METs, Instruct on symptoms of exercise intolerance & actions to take, Instruct & monitor on saf, Assess intial functional capacity & safety risk and Other See below Nutrition - Initial Assessment Program Goals Nutrition Program Goals Patient has diagnosis of Hyperlipidemia (ICD E78)?: Yes Visit Date of Eval: 06/11/23 (initial eval ) Cholesterol/Lipids (Other Core Measures) Determine presence & major risk factors that modify LDL goal: Cigarette smoking, Hypertension or hypertensive medication, Low HDL cholesterol <40 mg/dL*, Family history of premature CHD in Male < 55 years: female <65 yearsFa and Age men > 45 years; women >/= 55 years Outcomes/Goals: Pt IDs own risk factors & lifestyle modifications by Session 10, Verbalizes symptoms of angina & response by session 3., Pt independently manages and Other Additional Outcomes/Goals: Intervention/Plan: Advocate for lipid panel cholesterol medication if applicable, Instruct on personal lipid levels & lipid goals/NCEP guidelines, Instruct on cholesterol and Other additional plan/int Referral to dietitian:: Yes Diabetes (Other Core Measures) Diabetes Type: Diagnosis Type II ICD-10 E11 Insulin dependent injection/pump?: No Non-Insulin Dependent?: Yes Do you monitor your blood sugar at home?: Yes Referral to Diabetic Clinic:: Yes Outcomes/Goals:: Able to state symptoms of, Able to state, Able to state and Other additional Intervention/Plan:: Instruct on, Refer to, Instruct on and Other Weight Mgt (Other Care) Height: 6 ft 2 in Weight:: 305 lb BMI: 39.1 Diagnosis Overweight/Obesity BMI> 30% ICD-10 E66: Yes Diagnosis High BMI/Morbid Obesity BMI> 35% ICD-10 Z68: Yes Outcomes/Goals: Pt sets, maintains & shows weight loss goal & trend during rehab and Other additional outcomes/goals Intervention/Plan: Instruct on ideal BMI & set weight loss goal w/patient, Assist pt to ID & incorporate diet changes for weight loss by S9, Refer to Structured Weight Loss program as appropriate, Encourage goal of using 250-300dcal per session for weight loss and Other additional plan/interventions Healthy Eating Habits Will attend diet classes:: Yes Outcomes/Goals:: Consume diet rich in vegs,fruits,whole grain/high fiber,fish,lean meat, Limit sat/trans fats,cholesterol & added salts & sugars and Other additional outcome/goals: Intervention/Plan:: Assess current eating habits and Other Additional plan/interventions Education Gave educational materials for:: Signs & symptoms of hypoglycemia, Signs & symptoms of hyperglycemia, Relate diabetes to coronary artery disease and Healthy eating Core - Initial Assessment Visit Date of Eval: 06/11/23 (initial eval ) Medication Compliance Preventative Medication(s):: Aspirin, Statin/lipid, Beta gerson and ARB (Angiotensi Rcap) H/O mental health issues: depression, anxiety, or addiction?: No Doesn?t believe in the benefits of treatment?: No Believes medications are unnecessary or harmful?: No Has a concern about medication side effects?: No Expresses concern over the cost of medications?: No Outcomes/Goals: Verbalizes medications,desired effect & common side effects @ DC, Pt self-reports following medication regimen, Keeps card in wallet w/medications listed by DC and Other additional outcome/goals: Interventions/plans: Instruct on medication effects & side effects, Review medication list w/patient every two weeks, Instruct importance of taking meds as ordered & assist problem solving and Other additional Tobacco Use Tobacco Use: Non-smoker How long ago did you quit using tobacco products?: Greater than or equal to 6 months ago Years Smokin Do you use smokeless tobacco?: No Hypertension Hypertension Diagnosis:: Hypertension ICD-10 I10 Resting Blood Pressure:: 104/64 [place] [employer] Hypertension Guidelines Outcomes/Goals: Able to verbalize/achieve optimal blood pressure <130/80, Incorporates diet changes & exercise for blood pressure control by DC and Other additional outcomes/goals Interventions/plan: Instruct on optimal blood pressure, hypertension & medications, Instruct on effects of sodium, alcohol, stress, exercise &hypertension and Other additional plan/interventions Tobacco Cessation Referral Smoking Cessation Referral:: No Individual Education/Counseling:: No Education Schedule Given:: Yes Psychosocial - Initial Assess VIsit Date of Eval: 06/11/23 (initial eval ) History of previous Mental disease:: No Target Goals Target Goals Outcomes/Goals: See list Psychosocial Outcomes/Goals:: ID's personal stressors & 2 strategies to manage stress by discharge and Other Additional outcome/goals: Intervention/Plan: See List Interventions/Plan:: Assess stressors,coping strategies & signs of derpression on admission, Instruct/assist pt to develop coping & personal stress Mgt strategies, Refer to Behavioral Health if appropriate, Refer to Physician if appropriate, Instruct patient to recognize signs & symptoms of depression, Instruct patient to recog and Other additional plan/intervention Patient Health Questionnaire PHQ-9 Screening Initial Assessment: 1. Little interest or pleasure in doing things: Not at all 2. Feeling down, depressed, or hopeless: Not at all 3. Trouble falling or staying asleep, or sleeping too much: Not at all 4. Feeling tired or having little energy: Several days 5. Poor appetite or overeating: Not at all 6. Feeling bad about yourself -- or that you are a failure or have let yourself or your family down: Not at all 7. Trouble concentrating on things, such as reading the newspaper or watching television: Not at all 8. Moving or speaking so slowly that other people could have noticed. Or the opposite - being so fidgety or restless that you have been moving around a lot more than usual: Not at all 9. Thoughts that you would be better off , or of hurting yourself in some way: Not at all How difficult have these problems made it for you to do your work, take care of things at home, or get along with other people?: Not difficult at all Total Score: 1 PETER-Q SV Test Statements CAD is a disease of the arteries in the heart: I Don't Know Examples of risk factors for heart disease: True Angina is chest pain or discomfort: I Don't Know The benefits of resistance training include: True Eating more meat and dairy products: False Anti-platelet medications such as aspirin are important: I Don't Know The only effective way to manage stress: False An exercise warm-up slowly increases heart rate: False Prepared, processed foods usually have high sodium: True Depression is common after a heart attack: I Don't Know The statin medications lower cholesterol: True To control blood pressure, lower the amount of sodium: True If someone gets chest discomfort during walking: False Transfats are partially hydrogenated vegetable oils: True Sleep apnea that is not treated increases the risk: True To control cholesterol, one should become a vegetarian: I Don't Know Someone knows if he/she is exercising at the right level: I Don't Know Diabetes cannot be prevented with exercise & health eating: False Stress is a large risk for heart attack: True A diet that can help lower blood pressure is rich in: True Total Score Total Correct Responses: 12 Self-Efficacy 6-Item Scale Initial Assessment: We would like to know how confident you are in doing certain activities. Please select your confidence level for: Fatigue Select Number: 4 Physical Discomfort or Pain Select Number: 4 Emotional Distress Select Number: 4 Other Symptoms or Health Problems Select Number: 4 Different Tasks and Activities Select Number: 4 Medication Select Number: 5 Total Score:: 4 Nutrition Survey Nutrition Survey Instructions Scoring Instructions Nutrition Survey Initial: Have you lost >10 lbs over the past 2 months without trying?: No Are you following a special diet at home for diabetes, low fat, or low salt?: No Are you interested in meeting with a dietitian for help understanding your diet?: Yes Do you eat less than 3 meals a day?: Yes Do you eat fatty meats (butcher, sausage, ribs, etc), fried foods, desserts, large amounts of salad dressings, margarine, butter, or cheese most days?: No Do you have food allergies? [Enter types in comment field]: No Do you eat in restaurants more than 3 times a week?: No Do you season food with salt, seasoning salt, or garlic salt?: No Do you used canned, boxed, frozen meals, or soups, seasoning packets?: Yes Total Score:: 3 Exercise - Final/Discharge Physician Prescribed Exercise Modalities: Treadmill, Rower, Airdyne, NuStep, SciFit and Lateral [place] Frequency: 2x/week for 18 weeks [36 sessions] and 3x/week for 12 weeks [36 sessions] Intensity: 60-80% of age predicted maximum heart rate reserve Current METSs:: 3 Target Heart Rate:: 100-116 Nutrition - 30-Day Assessment Weight Mgt (Other Care) Height: 6 ft 2 in Weight:: 305 lb BMI: 39.1 Nutrition - 60-Day Assessment Weight Mgt (Other Care) Height: 6 ft 2 in Weight:: 305 lb BMI: 39.1 Core - 30-Day Assessment Tobacco Use Years Smokin Core - Final Assessment Hypertension Resting Blood Pressure:: 104/64 [place] [employer] Hypertension Guidelines Core - 60-Day Assessment Hypertension Resting Blood Pressure:: 104/64 [place] [employer] Hypertension Guidelines Psychosocial - 30-Day Assess Target Goals Target Goals Psychosocial - 60-Day Assess Target Goals Target Goals Psychosocial - 90-Day Assess Target Goals Target Goals Psychosocial - Final Assessmen Target Goals Target Goals Nutrition - 90-Day Assessment Weight Mgt (Other Care) Height: 6 ft 2 in Weight:: 305 lb BMI: 39.1 Nutrition - Final Assessment Program Goals Patient has diagnosis of Hyperlipidemia (ICD E78)?: Yes Weight Mgt (Other Care) Height: 6 ft 2 in Weight:: 305 lb BMI: 39.1
[2023-06-11 13:40] VITALS: BP 104/64; BMI 39.1
[2023-06-11 13:47] VITALS: BMI 39.1
== END | disposition home or self-care (01) ==
PROVIDERS: PCP Student in an Organized Health Care Education/Training Program
DX: I20.9 Angina pectoris, unspecified (principal)

== ENCOUNTER 2023-06-29 15:15 | Outpatient (RCR) | payer OTHER, SELFPAY ==
[2023-06-11 13:40] VITALS: BMI 39.1
== END 2023-07-01 23:59 ==
LOC: CR 15:15
PROVIDERS: PCP Student in an Organized Health Care Education/Training Program
DX: Z95.5 Presence of coronary angioplasty implant and graft (principal)
CPT/HCPCS: 93798

== ENCOUNTER 2023-07-30 15:15 | Outpatient (RCR) | payer OTHER, SELFPAY ==
[2023-06-11 13:40] VITALS: BMI 39.1
--- NOTE | 2023-07-11 08:43 | CR.ITP_ITS ---
Exercise - Initial Assessment Visit Session #:: 10 Nutrition - Initial Assessment Weight Mgt (Other Care) Height: 6 ft 2 in Weight:: 298 lb 8 oz BMI: 38.3 Core - Initial Assessment Tobacco Use Years Smokin Psychosocial - Initial Assess Target Goals Target Goals Patient Health Questionnaire PHQ-9 Screening 30-Day Re-eval Assessment: 1. Little interest or pleasure in doing things: Not at all 2. Feeling down, depressed, or hopeless: Not at all 3. Trouble falling or staying asleep, or sleeping too much: Not at all 4. Feeling tired or having little energy: Several days 5. Poor appetite or overeating: Not at all 6. Feeling bad about yourself -- or that you are a failure or have let yourself or your family down: Not at all 7. Trouble concentrating on things, such as reading the newspaper or watching television: Not at all 8. Moving or speaking so slowly that other people could have noticed. Or the opposite - being so fidgety or restless that you have been moving around a lot more than usual: Not at all 9. Thoughts that you would be better off , or of hurting yourself in some way: Not at all How difficult have these problems made it for you to do your work, take care of things at home, or get along with other people?: Not difficult at all Total Score: 1 Self-Efficacy 6-Item Scale 30-Day Re-eval Assessment: We would like to know how confident you are in doing certain activities. Please select your confidence level for: Fatigue Select Number: 4 Physical Discomfort or Pain Select Number: 4 Emotional Distress Select Number: 4 Other Symptoms or Health Problems Select Number: 4 Different Tasks and Activities Select Number: 4 Medication Select Number: 5 Total Score:: 4 Nutrition Survey Nutrition Survey Instructions Scoring Instructions Exercise - 30-day Assessment Visit Date of Eval: 07/11/23 Session #:: 10 Physician Prescribed Exercise Modalities: Treadmill, Airdyne and NuStep Frequency: 3x/week for 12 weeks [36 sessions] Intensity: 60-80% of age predicted maximum heart rate reserve Duration: 30 - 45 minutes Current METSs:: 4.4 Target Heart Rate:: 100-116 Current RPE:: 11.5-12 Maximum Excercise HR:: 103 Resting Blood Pressure: 132/78 Maximum Exercise Blood Pressure: 152/82 EKG Type: NSR to ST with rare pac, isolated pvc noted Outcomes & Goals Goals:: Verbalizes understanding of THR, RPE & goal METS by session 6, Documents in home exercise log/reports 30 min aerobic 5 day/wk by DC, Demonstrates accurate pulse taking by DC and Other additional outcome/goals: see below Intervention & Plan Exercise Program Goals: Instruct on personal THR & RPE, Instruct on MET level & personal MET goal, Show patient to take own pulse /validate performance until accurate, Instruct on home exercise and Other additional plan/int 30-day Reassessments 30 day Reassessments:: Progressing Reassessment Notes & Comments:: RPE explained Physical Activity Home Exercise Physical Activity - Home Exercise: Safe Exercise, Warm-up, Self-monitoring, Cool-Down, Home Exercise > 30 min Daily and Sitting Time <3 hours/daily Outcomes & Goals Outcomes/Goals: Demonstrates correct Warm-up/exercise Cool-Down (S3) if = 2.5 METs, Verbalizes symptoms of exercise intolerance by Session 3 (S3), Demonstrate safe equipment use (S3) & follows exercise prescrition (6) and Other: See below Intervention & Plan Plan/Intervention: Instruct warm-up & cool-down if exercising at > 2 METs, Instruct on symptoms of exercise intolerance & actions to take, Instruct & monitor on saf, Assess intial functional capacity & safety risk and Other See below 30-day Reassessments 30 day Reassessments:: Progressing Reassessment Notes & Comments:: warm up encouraged Nutrition - 30-Day Assessment Program Goals Nutrition Program Goals Patient has diagnosis of Hyperlipidemia (ICD E78)?: Yes Visit Date of Eval: 07/11/23 Session #:: 10 Cholesterol/Lipids (Other Core Measures) Determine presence & major risk factors that modify LDL goal: Cigarette smoking, Hypertension or hypertensive medication, Low HDL cholesterol <40 mg/dL*, Family history of premature CHD in Male < 55 years: female <65 yearsFa and Age men > 45 years; women >/= 55 years Outcomes/Goals: Pt IDs own risk factors & lifestyle modifications by Session 10, Verbalizes symptoms of angina & response by session 3., Pt independently manages and Other Additional Outcomes/Goals: Intervention/Plan: Advocate for lipid panel cholesterol medication if applicable, Instruct on personal lipid levels & lipid goals/NCEP guidelines, Instruct on cholesterol and Other additional plan/int Referral to dietitian:: Yes 30-day Reassessments:: Progressing Reassessment Notes & Comments:: pt is scheduled to see dietitian Diabetes (Other Core Measures) Diabetes Type: Diagnosis Type II ICD-10 E11 Insulin dependent injection/pump?: No Non-Insulin Dependent?: Yes Do you monitor your blood sugar at home?: Yes Referral to Diabetic Clinic:: Yes Outcomes/Goals:: Able to state symptoms of, Able to state, Able to state and Other additional Intervention/Plan:: Instruct on, Refer to, Instruct on and Other 30-day Reassessments:: Progressing Reassessment Notes & Comments:: pt is scheduled to see dietitian Weight Mgt (Other Care) Height: 6 ft 2 in Weight:: 298 lb 8 oz BMI: 38.3 Diagnosis Overweight/Obesity BMI> 30% ICD-10 E66: Yes Diagnosis High BMI/Morbid Obesity BMI> 35% ICD-10 Z68: Yes Outcomes/Goals: Pt sets, maintains & shows weight loss goal & trend during rehab and Other additional outcomes/goals Intervention/Plan: Instruct on ideal BMI & set weight loss goal w/patient, Assist pt to ID & incorporate diet changes for weight loss by S9, Refer to Structured Weight Loss program as appropriate, Encourage goal of using 250- 300dcal per session for weight loss and Other additional plan/interventions 30 day Reassessments:: Progressing Reassessment Notes & Comments:: pt is scheduled to see dietitian Healthy Eating Habits Will attend diet classes:: Yes Outcomes/Goals:: Consume diet rich in vegs,fruits,whole grain/high fiber,fish,lean meat, Limit sat/trans fats,cholesterol & added salts & sugars and Other additional outcome/goals: Intervention/Plan:: Assess current eating habits and Other Additional plan/interventions 30-day Reassessments:: Progressing Reassessment Notes & Comments:: pt will attend nutrition class Education Gave educational materials for:: Signs & symptoms of hypoglycemia, Signs & symptoms of hyperglycemia, Relate diabetes to coronary artery disease and Healthy eating Nutrition - 60-Day Assessment Weight Mgt (Other Care) Height: 6 ft 2 in Weight:: 298 lb 8 oz BMI: 38.3 Core - 30-Day Assessment Visit Date of Eval: 07/11/23 Session #:: 10 Medication Compliance Preventative Medication(s):: Aspirin, Statin/lipid, Beta gerson and ARB (Angiotensi Rcap) H/O mental health issues: depression, anxiety, or addiction?: No Doesn?t believe in the benefits of treatment?: No Believes medications are unnecessary or harmful?: No Has a concern about medication side effects?: No Expresses concern over the cost of medications?: No Outcomes/Goals: Verbalizes medications,desired effect & common side effects @ DC, Pt self-reports following medication regimen, Keeps card in wallet w/medications listed by DC and Other additional outcome/goals: Interventions/plans: Instruct on medication effects & side effects, Review medication list w/patient every two weeks, Instruct importance of taking meds as ordered & assist problem solving and Other additional 30-day Reassessments:: Progressing Reassessment Notes & Comments:: pt encouraged to take his meds Tobacco Use Tobacco Use: Non-smoker How long ago did you quit using tobacco products?: Greater than or equal to 6 months ago Years Smokin Do you use smokeless tobacco?: No Outcomes/Goals: Smoking cessation achieved or maintained by discharge, Identify aids/strategies for achieving smoking cessation by session 6 and Other additional outcome/goals Interventions/plan: Instruct on effects of smoking & provide smoking cessation resource, Assist pt to set quit date & provide encouragement, Assist pt to develop strategies to achieve/maintain quit date, Assist pt w/nicotine replacement & medication for cessation success and Other additional plan/interventions 30-day Reassessments:: Met Hypertension Hypertension Diagnosis:: Hypertension ICD-10 I10 Resting Blood Pressure:: 132/78 [place] [employer] Hypertension Guidelines Peak Exercise Blood Pressure:: 152/82 Outcomes/Goals: Able to verbalize/achieve optimal blood pressure <130/80, Incorporates diet changes & exercise for blood pressure control by DC and Other additional outcomes/goals Interventions/plan: Instruct on optimal blood pressure, hypertension & medications, Instruct on effects of sodium, alcohol, stress, exercise &hypertension and Other additional plan/interventions 30 day Reassessments:: Progressing Reassessment Notes & Comments:: Pt encouraged to take his meds Tobacco Cessation Referral Smoking Cessation Referral:: No Individual Education/Counseling:: No Education Schedule Given:: Yes Psychosocial - 30-Day Assess VIsit Date of Eval: 07/11/23 Session #:: 10 History of previous Mental disease:: No Target Goals Target Goals Outcomes/Goals: See list Psychosocial Outcomes/Goals:: ID's personal stressors & 2 strategies to manage stress by discharge and Other Additional outcome/goals: Intervention/Plan: See List Interventions/Plan:: Assess stressors,coping strategies & signs of derpression on admission, Instruct/assist pt to develop coping & personal stress Mgt strategies, Refer to Behavioral Health if appropriate, Refer to Physician if appropriate, Instruct patient to recognize signs & symptoms of depression, Instruct patient to recog and Other additional plan/intervention 30-day Reassessments: 30 day Reassessments:: Met Psychosocial - 60-Day Assess Target Goals Target Goals Outcomes/Goals: See list Psychosocial Outcomes/Goals:: ID's personal stressors & 2 strategies to manage stress by discharge and Other Additional outcome/goals: Psychosocial - 90-Day Assess Target Goals Target Goals Psychosocial - Final Assessmen Target Goals Target Goals Nutrition - 90-Day Assessment Weight Mgt (Other Care) Height: 6 ft 2 in Weight:: 298 lb 8 oz BMI: 38.3 Nutrition - Final Assessment Weight Mgt (Other Care) Height: 6 ft 2 in Weight:: 298 lb 8 oz BMI: 38.3
[2023-07-11 08:59] VITALS: BP 132/78; BMI 38.3
== END 2023-07-31 23:59 ==
LOC: CR 15:15
PROVIDERS: PCP Student in an Organized Health Care Education/Training Program
DX: Z95.5 Presence of coronary angioplasty implant and graft (principal)
CPT/HCPCS: 93798; 97802

== ENCOUNTER 2023-08-15 00:30 | Observation (INO) | payer OTHER, SELFPAY ==
[2023-08-10 08:05] VITALS: BMI 38.5
[2023-08-15] VITALS (16 sets, daily range): BP systolic 114–146; BP diastolic 73–104; PULSE 53–149; RESP 14–27; TEMP 36.1–36.9; O2SAT 94–98; BMI 38.8; BMI 38.7
--- NOTE | 2023-08-15 00:36 | RAD_ITS ---
EXAM: XR CHEST, 1 VIEW CLINICAL INDICATION: chest pain TECHNIQUE: Frontal view of the chest. COMPARISON: Chest radiographic report of 12/25/2022. FINDINGS: LUNGS AND PLEURAL SPACES: Bands of discoid atelectasis or scarring noted within both lower lungs. No consolidation or edema. No pneumothorax. No effusion. HEART: Unremarkable. Cardiac silhouette not enlarged. Normal pulmonary vasculature. MEDIASTINUM: Thoracic aorta is minimally elongated and calcific. No mediastinal widening. BONES/JOINTS: Thoracic degenerative spurring. No acute fracture. SOFT TISSUES: Unremarkable. RAD/Chest 1 View (Portable) IMPRESSION: Multiple bands of discoid atelectasis or scarring in the lower lungs. No pneumonia or pulmonary edema. Electronically Signed: Seb Quigley MD at 1:23 EDT ,
--- NOTE | 2023-08-15 00:39 | ED.VIS.CHEST ---
HPI History of Present Illness Chief Complaint: Chest Pain Informant: patient and spouse/S.O. Narrative Narrative: Patient has sudden onset of racing heartbeat and sweats lightheadedness started about an hour prior to evaluation or less. Never had this before. He sees cardiology at [facility] and had some stents put in in April. He has had some minor left-sided chest pain and some other different right-sided chest pain ever since then, he states that is no different he denies having any new chest pain with this tonight. No syncope, but he felt like he was close at one point. No history of dysrhythmias. Compliant with his aspirin and other medications for his heart. [facility] Medical History Mitral valve disorder Aortic valve disorder Obesity, Class III, BMI 40-49.9 (morbid obesity) Fatty infiltration of liver LFT elevation Former smoker Solitary thyroid nodule Osteoarthritis CHERYL on CPAP GERD (gastroesophageal reflux disease) Hyperlipemia diabetes mellitus type 2 Home Medications ?Medication ?Instructions ?Recorded ?Last Taken ?Type pantoprazole 40 mg tablet,delayed 40 mg PO DAILY 01/05/15 01/05/15 History release cholecalciferol (vitamin D3) 100 4,000 unit PO DAILY PRN vitamin 05/13/19 08/14/23 History mcg (4,000 unit) capsule deficiency acyclovir 400 mg tablet 400 mg PO BID 11/22/21 Unknown History aspirin 81 mg tablet,delayed 81 mg PO DAILY 11/22/21 Unknown History release (Adult Aspirin Regimen) dexamethasone sodium phosphate 0.1 1 drp otic (ear) ONCE 11/22/21 Unknown History % eye drops empagliflozin 25 mg tablet 10 mg PO QAM 11/22/21 Unknown History (Jardiance) albuterol sulfate 90 mcg/actuation 2 puff inhalation Q4H PRN PRN 08/15/23 Unknown History aerosol inhaler wheezing carvedilol 6.25 mg tablet 6.25 mg PO BID 08/15/23 Unknown History clopidogrel 75 mg tablet 75 mg PO DAILY 08/15/23 Unknown History losartan 25 mg tablet 50 mg PO DAILY 08/15/23 Unknown History nitroglycerin 0.4 mg sublingual sublingual 08/15/23 Unknown History tablet rosuvastatin 20 mg tablet 20 mg PO QHS 08/15/23 Unknown History semaglutide 0.25 mg or 0.5 mg (2 0.25 mg subcut QWEEK 08/15/23 Unknown History mg/3 mL) subcutaneous pen injector (Ozempic) Allergy/AdvReac Type Severity Reaction Status Date / Time ticagrelor (From Brilinta) Allergy Rash Verified 08/15/23 00:36 Family History (Updated 11/22/21 @ 15:43 by Geeta Stuart) Mother Colon cancer Hypertension Father Heart disease Pacemaker Daughter Cancer thyroid Grandmother Lung cancer CVA (cerebral vascular accident) Aunt Diabetes Surgical History History of appendectomy (~1976) History of cholecystectomy (~1995) History of colonoscopy (~09/2015) History of esophagogastroduodenoscopy (EGD) History of hernia repair (~2002) History of surgical removal of ganglion cyst (~1999) History of tonsillectomy and adenoidectomy (~1970) Status post biopsy of thyroid gland (~05/2019) Social History Smoking Status: Former smoker alcohol intake: never substance use type: does not use ROS ROS ED Constitutional Constitutional ED: Reports sweats; Denies chills or fever(s) Eyes Eyes: Denies change in vision or diplopia ENT ENT ED: Denies rhinorrhea or sore throat Cardiovascular Cardiovascular: Reports as per HPI, chest pain, lightheadedness, palpitations and racing heartbeat; Denies syncope Respiratory/Chest Respiratory/Chest: Denies cough or dyspnea Gastrointestinal Gastrointestinal: Denies abdominal pain, diarrhea, nausea or vomiting Genitourinary Genitourinary ED: Denies dysuria or hematuria Musculoskeletal Musculoskeletal: Denies back pain or neck pain Integumentary Denies abscess or rash Neurologic Neurologic: Denies headache(s), paresthesias or weakness Psychiatric Psychiatric: Denies anxiety or suicidal thoughts EXAM Physical Exam Const Vital Signs: 08/15/23 00:31 08/15/23 00:36 08/15/23 00:37 Temperature 97 F L 97 F L Temperature Source Temporal Temporal Pulse Rate 149 H 141 H Respiratory Rate 27 H 25 H Respiratory Effort Respiratory Pattern Blood Pressure 131/104 H Blood Pressure Mean 113 Blood Pressure Source Blood Pressure Position Blood Pressure Location Pulse Ox 97 96 Oxygen Delivery Method Room Air Room Air Room Air 08/15/23 00:41 08/15/23 00:41 08/15/23 01:07 Temperature Temperature Source Pulse Rate 145 H Respiratory Rate 17 Respiratory Effort Normal Normal Respiratory Pattern Normal Blood Pressure 141/90 H Blood Pressure Mean 107 Blood Pressure Source Blood Pressure Position Blood Pressure Location Pulse Ox 96 Oxygen Delivery Method Room Air 08/15/23 02:00 08/15/23 02:18 Temperature Temperature Source Pulse Rate 107 H 145 H Respiratory Rate 22 H 16 Respiratory Effort Respiratory Pattern Blood Pressure 146/77 H 146/77 H Blood Pressure Mean 100 100 Blood Pressure Source Monitor Blood Pressure Position Sitting Blood Pressure Location Right Arm Pulse Ox 95 94 Oxygen Delivery Method Room Air Room Air Positive well nourished and well developed General Appearance ED: well developed and NAD HEENT Reports moist mucous membranes normocephalic and atraumatic Eyes PERRL and EOMs intact bilaterally Neck full ROM and supple Resp normal respiratory effort and clear to auscultation bilaterally Cardio no murmurs Rate: tachycardic Rhythm: abnormal rhythm irregularly irregular GI non-tender and non-distended Auscultation: normoactive bowel sounds Palpation: soft Back/Spine no CVA tenderness General Back: other FROM Extremity normal to inspection General Extremety ED: Negative for edema, pulses abnormal or tenderness General Extremity: Negative for edema or pulses abnormal Neuro oriented x3, CN's II-XII intact bilaterally and no sensory deficits noted Sensorium / Orientation: awake and alert Motor Exam: strength 5/5 throughout Skin no rashes or lesions noted and no wounds MDM MDM MDM Narrative Medical decision making narrative: Patient is initial EKG is very rapid appears likely A-fib given the irregularity on the monitor, although the EKG computer read it as possible a flutter. I gave him a dose of Cardizem 20 mg it did really very little for his rate but after another dose of 15 mg, he was down below 100 the majority of time and felt much better. However before his blood work came back he went back up to the 140s fairly quickly and therefore we started the Cardizem drip after giving him another 10 mg bolus, all of this controlled the rate better again. He states when the rate was down in the 90s, he was still feeling the irregularity but not feeling poorly like he had been before. Blood pressure has remained stable. Given all of this, will discuss with hospitalist for admission on Cardizem drip to help stabilize. Lab Data Attestation: I reviewed the patient's lab results. Labs: Laboratory Results - last 24 hr 08/15/23 00:54 WBC 9.6 RBC 5.53 Hgb 17.7 H Hct 51.2 MCV 92.6 MCH 32.0 MCHC 34.6 RDW Std Deviation 43.0 RDW Coeff of Kayce 12.6 Plt Count 149 L MPV 11.7 Immature Gran % (Auto) 0.400 Neut % (Auto) 60.2 Lymph % (Auto) 30.7 Pierce % (Auto) 7.4 Eos % (Auto) 0.8 Baso % (Auto) 0.5 Absolute Neuts (auto) 5.8 Absolute Lymphs (auto) 2.96 Nucleated RBC % 0 Sodium 138 Potassium 3.7 Chloride 108 H Carbon Dioxide 25.0 Anion Gap 5 BUN 12 Creatinine 0.95 Estim Creat Clear Calc 129.54 Est GFR (MDRD) Af Amer 106 Est GFR (MDRD) Non-Af 88 BUN/Creatinine Ratio 12.6 Glucose 141 H Calcium 9.3 Troponin I High Sens 9 Radiography Diagnostic Testing: Clinical Impression(s) from Imaging Studies Chest X-Ray 08/15/23 00:36 IMPRESSION: Multiple bands of discoid atelectasis or scarring in the lower lungs. No pneumonia or pulmonary edema. Electronically Signed: Seb Quigley MD at 1:23 EDT , Rhythm Strip Rhythm Strip: A-fib Rate: 155 Ectopy: None EKG Initial EKG: Attestation: I personally reviewed and interpreted this EKG as follows: Interpretation: No Acute Injury Pattern, Atrial Fibrillation (w/ RVR) and Non-Specific ST Changes Comments: RSR' Prior EKG tracings: not available for review Follow-up EKG: Attestation: I personally reviewed and interpreted this EKG as follows: Interpretation: No Acute Injury Pattern and Atrial Fibrillation (rate 99; no flutter waves) Comments: RSR' Management Discussion w/another healthcare provider: Hospitalist Discharge Plan Dx/Rx/DC Orders Clinical Impression: Atrial fibrillation with RVR, Near syncope Disposition Disposition: Acute Care Hospital [facility]
[2023-08-15] MEDS: dilTIAZem 25 MG/5 ML Vial 20 MG IV BOLUS (00:51)
[2023-08-15] MEDS: 0.9% Normal Saline (1000mL) 1,000 ML 999 ML IV (00:52)
[2023-08-15 01:08] LABS: Absolute Lymphocyte Count 2.96 X10^3/uL (0.83-4.51); Absolute Neutrophil Count 5.8 X10^3/uL (2.0-7.7); Basophil# 0.05 X10^3/uL; Basophil% 0.5 % (0-1); Eosinophil# 0.08 X10^3/uL; Eosinophils% 0.8 % (0-5); Hematocrit 51.2 % (40-54); Hemoglobin 17.7 g/dL (13.0-16.5); Lymphocyte # 2.96 X10^3/ul (0.83-4.51); Lymphocyte % 30.7 % (19-41); Mean Corp Hgb Conc 34.6 g/dL (32-36); Mean Corpuscular Volume 92.6 fL (80-94); Mean Platelet Vol. 11.7 fl (6.2-12.0); Monocyte# 0.71 X10^3/uL; Monocyte% 7.4 % (0-10); NRBC Flagged by Analyzer 0 % (0-5); Neutrophil % 60.2 % (47-70); Platelet Count 149 K/mm3 (150-450); RBC Distribution Width CV 12.6 % (11.6-14.6); Red Blood Count 5.53 M/mm3 (4.6-6.2); White Blood Count 9.6 K/mm3 (4.4-11.0)
[2023-08-15] MEDS: dilTIAZem 25 MG/5 ML Vial 15 MG IV BOLUS (01:18)
[2023-08-15 01:33] LABS: Anion Gap 5 (5-15); BUN 12 mg/dL (7-18); BUN/Creat Ratio 12.6 RATIO (10-20); Calcium,Total 9.3 mg/dL (8.5-10.1); Chloride 108 mmol/L (98-107); Creatinine, Serum 0.95 mg/dL (0.70-1.30); EST Glomerular Filtration Rate 88 mL/min (>60); Est Glom Filt Rate - Afr Amer 106 mL/min (>60); Estimated Creatinine Clearance 129.54 ml/min; Glucose 141 mg/dL (74-106); Potassium 3.7 mmol/L (3.5-5.1); Sodium Level 138 mmol/L (136-145); Troponin-I HS (w/2H Reflex) 9 pg/mL (3.0-78.0)
[2023-08-15] MEDS: dilTIAZem 25 MG/5 ML Vial 10 MG IV BOLUS (02:15)
[2023-08-15] MEDS: Diltiazem 125 MG in Dextrose 5%-Water (100mL Bag) 100 ML CONT INF (02:18)
--- NOTE | 2023-08-15 02:52 | HP.PCM.HOS_ITS ---
[facility] - General General Date of Service: 08/15/23 Chief Complaint: shortness of breath. chest pain. [facility] Narrative DESIRAE BRIGGS, is a 53 M who presents with chest pain and shortness of breath. Patient had a stent placed in April and since then he gets periodic bouts of shortness of breath and transient chest pain. Usually these events are self-limiting and resolve spontaneously. Couple months ago it was noted that his heart rate was irregular when looking at his watch but then when he rechecked it, it was normal, so he did not think much of it at that time. But around midnight today, patient noted the symptoms again but is also dizzy. Checked his watch and it was noted that his heart rate is regular went to the emergency room. In the emergency room, was noted he was in atrial fibrillation with RVR. He received 20 mg of diltiazem which helped his heart rate that went back into RVR. He received another 10 mg placed on diltiazem drip. Patient has never had atrial fibrillation that he is aware of before. [facility]END[facility] SALE TO [facility] Medical History Mitral valve disorder Aortic valve disorder Obesity, Class III, BMI 40-49.9 (morbid obesity) Fatty infiltration of liver LFT elevation Former smoker Solitary thyroid nodule Osteoarthritis CHERYL on CPAP GERD (gastroesophageal reflux disease) Hyperlipemia diabetes mellitus type 2 Home Medications ?Medication ?Instructions ?Recorded ?Last Taken ?Type pantoprazole 40 mg tablet,delayed 40 mg PO DAILY 01/05/15 01/05/15 History release cholecalciferol (vitamin D3) 100 4,000 unit PO DAILY PRN vitamin 05/13/19 08/14/23 History mcg (4,000 unit) capsule deficiency acyclovir 400 mg tablet 400 mg PO BID 11/22/21 Unknown History aspirin 81 mg tablet,delayed 81 mg PO DAILY 11/22/21 Unknown History release (Adult Aspirin Regimen) dexamethasone sodium phosphate 0.1 1 drp otic (ear) ONCE 11/22/21 Unknown History % eye drops empagliflozin 25 mg tablet 10 mg PO QAM 11/22/21 Unknown History (Jardiance) albuterol sulfate 90 mcg/actuation 2 puff inhalation Q4H PRN PRN 08/15/23 Unknown History aerosol inhaler wheezing carvedilol 6.25 mg tablet 6.25 mg PO BID 08/15/23 Unknown History clopidogrel 75 mg tablet 75 mg PO DAILY 08/15/23 Unknown History losartan 25 mg tablet 50 mg PO DAILY 08/15/23 Unknown History nitroglycerin 0.4 mg sublingual sublingual 08/15/23 Unknown History tablet rosuvastatin 20 mg tablet 20 mg PO QHS 08/15/23 Unknown History semaglutide 0.25 mg or 0.5 mg (2 0.25 mg subcut QWEEK 08/15/23 Unknown History mg/3 mL) subcutaneous pen injector (Ozempic) Allergy/AdvReac Type Severity Reaction Status Date / Time ticagrelor (From Brilinta) Allergy Rash Verified 08/15/23 00:36 Family History Mother Colon cancer Hypertension Father Heart disease Pacemaker Daughter Cancer thyroid Grandmother Lung cancer CVA (cerebral vascular accident) Aunt Diabetes Surgical History History of esophagogastroduodenoscopy (EGD) Status post biopsy of thyroid gland (~05/2019) History of surgical removal of ganglion cyst (~1999) History of hernia repair (~2002) History of colonoscopy (~09/2015) History of cholecystectomy (~1995) History of appendectomy (~1976) History of tonsillectomy and adenoidectomy (~1970) Social History Smoking Status: Former smoker alcohol intake: never substance use type: does not use ROS ROS Narrative Had some nausea today. All review of systems were negative except as mentioned above in the history of present illness and the other review of systems. Vital Signs Vital Signs Vital Signs: 08/15/23 00:31 08/15/23 00:36 08/15/23 00:37 Temperature 36.1 C L 36.1 C L Temperature Source Temporal Temporal Pulse Rate 149 H 141 H Respiratory Rate 27 H 25 H Respiratory Effort Respiratory Pattern Blood Pressure 131/104 H Blood Pressure Mean 113 Blood Pressure Source Blood Pressure Position Blood Pressure Location Pulse Ox 97 96 Oxygen Delivery Method Room Air Room Air Room Air 08/15/23 00:41 08/15/23 00:41 08/15/23 01:07 Temperature Temperature Source Pulse Rate 145 H Respiratory Rate 17 Respiratory Effort Normal Normal Respiratory Pattern Normal Blood Pressure 141/90 H Blood Pressure Mean 107 Blood Pressure Source Blood Pressure Position Blood Pressure Location Pulse Ox 96 Oxygen Delivery Method Room Air 08/15/23 02:00 08/15/23 02:18 08/15/23 02:50 Temperature Temperature Source Pulse Rate 107 H 145 H 131 H Respiratory Rate 22 H 16 22 H Respiratory Effort Respiratory Pattern Blood Pressure 146/77 H 146/77 H 139/93 H Blood Pressure Mean 100 100 108 Blood Pressure Source Monitor Monitor Blood Pressure Position Sitting Sitting Blood Pressure Location Right Arm Right Arm Pulse Ox 95 94 96 Oxygen Delivery Method Room Air Room Air Room Air Weight Weight: 137.3 kg Body Mass Index (BMI) 38.8 Physical Exam Const alert and no apparent distress HEENT normocephalic and head/scalp atraumatic Eyes Eyes Narrative: No icterus. Glasses. Neck no lymphadenopathy Resp normal respiratory effort, no retractions, no use of accessory muscles and clear to auscultation bilaterally Cardio Cardio Narrative: Irregularly irregular. No murmurs gallops or rubs. GI normal to inspection, nondistended, normoactive bowel sounds, soft to palpation, non-tender and non-distended; Negative for hepatosplenomegaly Extremity normal to inspection and no clubbing, cyanosis or edema Skin Skin Narrative: No rashes or lesions. Neuro moves all extremities Sensorium / Orientation: awake and alert Psych affect normal Results Lab / Micro Data 08/15/23 00:54 08/15/23 00:54 Labs: Laboratory Results - last 24 hr 08/15/23 00:54: WBC 9.6, RBC 5.53, Hgb 17.7 H, Hct 51.2, MCV 92.6, MCH 32.0, MCHC 34.6, RDW Std Deviation 43.0, RDW Coeff of Kayce 12.6, Plt Count 149 L, MPV 11.7, Immature Gran % (Auto) 0.400, Neut % (Auto) 60.2, Lymph % (Auto) 30.7, [place] % (Auto) 7.4, Eos % (Auto) 0.8, Baso % (Auto) 0.5, Absolute Neuts (auto) 5.8, Absolute Lymphs (auto) 2.96, Nucleated RBC % 0, Sodium 138, Potassium 3.7, Chloride 108 H, Carbon Dioxide 25.0, Anion Gap 5, BUN 12, Creatinine 0.95, Estim Creat Clear Calc 129.54, Est GFR (MDRD) Af Amer 106, Est GFR (MDRD) Non-Af 88, BUN/Creatinine Ratio 12.6, Glucose 141 H, Calcium 9.3, Troponin I High Sens 9 Rhythm Strip Rhythm Strip: A-fib Rate: 155 Ectopy: None Imaging Radiology Impression Chest X-Ray 08/15/23 00:36 IMPRESSION: Multiple bands of discoid atelectasis or scarring in the lower lungs. No pneumonia or pulmonary edema. Electronically Signed: Seb Quigley MD at 1:23 EDT , Assessment & Plan Assessment/Plan (1) Atrial fibrillation with RVR: PLAN: Plan Atrial fibrillation with RVR * [id number] of 2 * Received a total of 30 mg of IV diltiazem in the emergency room and subsequently started on a drip. Will continue the drip now. * Continue with his carvedilol 6.25 mg twice daily for now * Consult cardiology, check 2D echocardiogram, cycle troponins * With his elevated stroke risk, will start anticoagulation. 20 note the final echo results are, this enoxaparin. Anticipate the patient going NOAC upon discharge. Discussed with he and his about the indications for anticoagulation to help prevent strokes in the future. Diabetes mellitus type 2 * [id number] * He takes empagliflozin and semaglutide. 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 Nuñez through [facility]. * Will request records * Continue with aspirin and clopidogrel (patient developed urticaria with ticagrelor) and statin Hypertension: Continue with losartan and carvedilol VTE prophylaxis: Not indicated as patient will be anticoagluated. Charges/Coding Visit Charges Inpatient E&M: 64364 Init Hosp L3
[2023-08-15 02:54] LABS: Reflex Troponin-HS? (from REC) Y
[2023-08-15 03:27] LABS: Troponin-I HS 37 pg/mL (3.0-78.0)
[2023-08-15] MEDS: Metoprolol Tartrate 5 MG/5 ML Vial IV (03:40)
--- NOTE | 2023-08-15 04:17 | EKG12_ITS ---
Test Reason : CP Blood Pressure : / mmHG Vent. Rate : 065 BPM Atrial Rate : 065 BPM P-R Int : 156 ms QRS Dur : 106 ms QT Int : 406 ms P-R-T Axes : 047 042 002 degrees QTc Int : 422 ms Normal sinus rhythm Low voltage QRS Borderline ECG Confirmed by Derrick Kenney ([id number]), editorial clerk ANABELLE FERREIRA ([id number]) on 08/24/2023 10:15:32 AM Referred By: Confirmed By:Derrick Kenney
--- NOTE | 2023-08-15 04:21 | ECHOCS_ITS ---
Reason For Study: Afib, Aflutter Procedure This was a 2D Doppler, Color Flow transthoracic echocardiogram. Contrast injection was performed. Exam performed portable in ICU/CCU. Left Ventricle Mild concentric left ventricular hypertrophy. Normal LV size. The estimated ejection fraction is 65 %. Normal diastololic function. No regional wall motion abnormalities noted. Right Ventricle Normal RV size. Normal systolic function. Atria The left and right atria are normal. Mitral Valve The mitral valve is structurally normal. No prolapse or stenosis seen. Tricuspid Valve Normal tricuspid valve. Trivial tricuspid valve insufficiency. Unable to estimate RV systolic pressure due to insufficient tricuspid regurgitant envelope. Aortic Valve Trisinus/trileaflet aortic valve. Mild diffuse aortic valve calcification. Mild aortic stenosis. Peak aortic valve gradient 22 mmHg. Mean aortic valve gradient 14 mmHg. Pulmonic Valve Normal pulmonic valve. Trivial pulmonic valve insufficiency. Great Vessels Normal aortic root. Pericardium/Pleural No pericardial effusion. Medication Diluted definity 1.5ml given slow IV push to enhance endocardial definition. MMode/2D Measurements & Calculations LVIDd: 4.7 cm IVSd: 1.0 cm LVOT diam: 2.1 cm LVIDs: 3.0 cm LVPWd: 0.99 cm RVDd: 4.0 cm FS: 36.5 % LVOT area: 3.5 cm2 Ao root diam: 3.3 cm LAV(MOD-bp): 35.8 ml LVAd ap4: 32.0 cm2 LAV(MOD-bp) Indexed: 13.8 ml/m2 LVLd ap4: 8.3 cm LAV(MOD-sp2): 35.8 ml EDV(MOD-sp4): 101.3 ml LAV(MOD-sp4): 33.1 ml EDV(sp4-el): 104.8 ml LVAs ap4: 16.4 cm2 LVLs ap4: 6.3 cm ESV(MOD-sp4): 34.8 ml ESV(sp4-el): 35.9 ml EF(MOD-sp4): 65.7 % EF(sp4-el): 65.7 % SV(MOD-sp4): 66.5 ml SV(sp4-el): 68.9 ml LA A4 area: 14.0 cm2 LA dimension(2D): 3.6 cm RA A4 area: 9.7 cm2 TAPSE: 2.4 cm Time Measurements MV dec time: 0.23 sec Doppler Measurements & Calculations MV E max bro: 74.8 cm/sec Lat Peak E' Bro: 13.1 cm/sec Med Peak E' Bro: 9.7 cm/sec MV A max bro: 47.5 cm/sec E/E' lat: 5.7 E/E' med: 7.7 MV E/A: 1.6 MV dec slope: 331.8 cm/sec2 Ao V2 max: 233.0 cm/sec LV V1 max: 88.2 cm/sec Ao max P.7 mmHg LV V1 max P.1 mmHg Ao V2 mean: 179.5 cm/sec LV V1 mean P.1 mmHg Ao mean P.8 mmHg LV V1 mean: 69.7 cm/sec Ao V2 VTI: 48.8 cm LV V1 VTI: 20.1 cm AV (velocity ratio): 0.41 KOBY(I,D): 1.5 cm2 KOBY(V,D): 1.3 cm2 SV(LVOT): 71.2 ml PA V2 max: 72.1 cm/sec ECHO/Echo Complete W/ Contrast Interpretation Summary The estimated ejection fraction is 65 %. Mild concentric left ventricular hypertrophy. Mild aortic stenosis. The study was technically difficult. Contrast injection was performed. Compared to prior study, there is no significant change. Ordering Physician: Jordan Campos Referring Physician: Jayden Love Performed By: Amy Meraz, ANGELA, RVT
[2023-08-15] MEDS: Enoxaparin 150 MG/ML Syringe 140 MG SC (06:02)
[2023-08-15 08:47] LABS: Bedside Glucose 131 mg/dL (74-106)
[2023-08-15 09:01] LABS: Thyroid Stim Hormone (TSH) 0.92 uIU/mL (0.358-3.74)
[2023-08-15 09:08] LABS: Troponin-I HS 49 pg/mL (3.0-78.0)
--- NOTE | 2023-08-15 09:44 | CASEMGMT ---
[facility] Assessment Face to Face with patient for initial transition planning/care coordination assessment. RN CM introduced self and role at [facility], pt voices understanding. Pt is A&Ox4 and is resting comfortably in bed and is calm. Pt at beside. Care providers, pharmacy, and demographics verified. Admitting dx: AFIB RVR LACE Strata: 1 PCP: Jayden Love Specialists: Dr. Savannah BROWNE Cardio Preferred Pharmacy: [facility] Insurance: [employer] DIANA Prescription Benefit: Yes - through [employer] [facility] LNOK: iTffanie Norton Living Arrangements: Pt lives with his in a single story home with a BM and 1 step to enter ADLs/IADLs: Ind Transportation: Self, DME: Working [employer] and enough supplies. CPAP at HS. BP Cuff. Pulse Ox. Denies further needs HHC/SNF: Denies history or needs Pt?s goal: home Plan: Pt states that he is active with the cardiac rehab program here and plans to continue this after DC. Pt denies further needs at this time. CM to follow. Samantha Hope RN, CM
[2023-08-15] MEDS: Cholecalciferol (VIT D3) 25 MCG TABLET (1,000 UNITS) 100 MCG PO (10:09)
[2023-08-15] MEDS: Carvedilol 6.25 MG Tablet PO (10:09)
[2023-08-15] MEDS: Empagliflozin 10 MG Tablet PO (10:10)
[2023-08-15] MEDS: Losartan Potassium 50 MG Tablet PO (10:10)
[2023-08-15] MEDS: Aspirin E.C. 81 MG Tablet PO (10:10)
[2023-08-15] MEDS: Acyclovir 200 MG Capsule 400 MG PO (10:11)
[2023-08-15] MEDS: Pantoprazole Sodium 40 MG Tablet PO (10:11)
[2023-08-15] MEDS: Clopidogrel Bisulfate 75 MG Tablet PO (10:11)
[2023-08-15 12:13] LABS: Bedside Glucose 135 mg/dL (74-106)
--- NOTE | 2023-08-15 12:56 | CON.PCM.CA_ITS ---
Assessment & Plan Assessment/Plan (1) Paroxysmal atrial fibrillation: PLAN: Spontaneously converted to normal sinus rhythm. Continue carvedilol. Increase to 12.5 mg twice daily. Patient's CHADS2?VASc score is 3. Recommend anticoagulation. Risks benefits and alternatives discussed with patient in detail. He understand these and wishes to proceed. Stop aspirin. Start on apixaban 5 mg twice daily. I believe patient would be a good candidate for attempt at A-fib/flutter ablation. 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 (2) Coronary artery disease: PLAN: History of percutaneous intervention done in April of this year. Stable. Asymptomatic. Continue beta-blockers. As we are starting the patient on apixaban, stop aspirin. Continue clopidogrel. (3) Aortic valve stenosis, mild: PLAN: Periodic echo and clinical surveillance. (4) Hypertension: PLAN: Beta-blockers, angiotensin receptor blockers. (5) Dyslipidemia: PLAN: Atorvastatin. (6) diabetes mellitus type 2: PLAN: As per internal medicine. (7) CHERYL on CPAP: PLAN: As per sleep medicine. (8) Obesity (BMI 30-39.9): PLAN: Lose weight. HPI Consult Data Date of Consult: 09/04/23 HPI Narrative Reason for Consultation: Atrial fibrillation HPI Narrative: This patient has history of coronary artery disease status post percutaneous intervention at [place] in April of this year. Also history of sleep apnea, dyslipidemia and hypertension. He presented to the emergency room with complaints of acute onset palpitations last night. In the emergency room, he was noted to have atrial fibrillation/flutter with rapid ventricular response. He was administered diltiazem boluses and also started on infusion. He subsequently converted to normal sinus rhythm. Apparently with conversion to the sinus rhythm, he became profoundly bradycardic. According to the patient, he felt very lightheaded with that. Patient denies any chest pains or shortness of breath associated with his palpitations. No orthopnea. No PND. No ankle edema. Per patient, previously his smart watch has noted his heart rate to be irregular on a couple of occasions. No history of CVA or TIA. No bleeding disorders. No history of frequent falls. [facility] Medical History Mitral valve disorder Aortic valve disorder Obesity, Class III, BMI 40-49.9 (morbid obesity) Fatty infiltration of liver LFT elevation Former smoker Solitary thyroid nodule Osteoarthritis CHERYL on CPAP GERD (gastroesophageal reflux disease) Hyperlipemia diabetes mellitus type 2 Home Medications ?Medication ?Instructions ?Recorded ?Last Taken ?Type pantoprazole 40 mg tablet,delayed 40 mg PO DAILY 01/05/15 01/05/15 History release cholecalciferol (vitamin D3) 100 4,000 unit PO DAILY PRN vitamin 05/13/19 08/14/23 History mcg (4,000 unit) capsule deficiency acyclovir 400 mg tablet 400 mg PO BID 11/22/21 Unknown History dexamethasone sodium phosphate 0.1 1 drp otic (ear) ONCE 11/22/21 Unknown History % eye drops empagliflozin 25 mg tablet 10 mg PO QAM 11/22/21 Unknown History (Jardiance) albuterol sulfate 90 mcg/actuation 2 puff inhalation Q4H PRN PRN 08/15/23 Unknown History aerosol inhaler wheezing apixaban 5 mg tablet (Eliquis) 5 mg PO BID #60 tabs 08/15/23 Unknown Rx carvedilol 12.5 mg tablet 12.5 mg PO BID #60 tabs 08/15/23 Unknown Rx clopidogrel 75 mg tablet 75 mg PO DAILY 08/15/23 Unknown History rosuvastatin 20 mg tablet 20 mg PO QHS 08/15/23 Unknown History semaglutide 0.25 mg or 0.5 mg (2 0.25 mg subcut QWEEK DIABETES 08/15/23 Unknown History mg/3 mL) subcutaneous pen injector (Ozempic) losartan 50 mg tablet 50 mg PO DAILY 08/23/23 Unknown History Allergy/AdvReac Type Severity Reaction Status Date / Time ticagrelor (From Brilinta) Allergy Rash Verified 08/23/23 21:41 Family History Mother Colon cancer Hypertension Father Heart disease Pacemaker Daughter Cancer thyroid Grandmother Lung cancer CVA (cerebral vascular accident) Aunt Diabetes Surgical History History of esophagogastroduodenoscopy (EGD) Status post biopsy of thyroid gland (~05/2019) History of surgical removal of ganglion cyst (~1999) History of hernia repair (~2002) History of colonoscopy (~09/2015) History of cholecystectomy (~1995) History of appendectomy (~1976) History of tonsillectomy and adenoidectomy (~1970) Social History Smoking Status: Former smoker alcohol intake: never substance use type: does not use Physical Exam Narrative Comfortable. No apparent distress. Obese. Heart sounds 1 and 2 are noted. 2/6 systolic murmur at apex and base. Chest clear to auscultation bilaterally. Alert oriented x 3. No ankle edema noted. Risk Stratification Risk Stratification Applicable: No Objective Data Vital Signs: Vital Signs Temp Pulse Resp BP Pulse Ox O2 Del Method 98.4 F 75 16 139/79 H 98 Room Air 08/15/23 10:15 08/15/23 10:15 08/15/23 10:15 08/15/23 10:15 08/15/23 10:15 08/15/23 10:15 Oxygen Delivery Method Room Air Weight: 302 lb 0.533 oz Body Mass Index (BMI) 38.7 Intake & Output: Intake and Output for Last 24 Hours 08/13/23 08/14/23 08/15/23 23:59 23:59 23:59 Intake Total 1498.92 / 1498.92 Balance 1498.92 / 1498.92 Lab / Micro Data 08/15/23 00:54 08/15/23 00:54 Labs: Laboratory Results - last 24 hr 08/15/23 00:54: WBC 9.6, RBC 5.53, Hgb 17.7 H, Hct 51.2, MCV 92.6, MCH 32.0, MCHC 34.6, RDW Std Deviation 43.0, RDW Coeff of Kayce 12.6, Plt Count 149 L, MPV 11.7, Immature Gran % (Auto) 0.400, Neut % (Auto) 60.2, Lymph % (Auto) 30.7, [place] % (Auto) 7.4, Eos % (Auto) 0.8, Baso % (Auto) 0.5, Absolute Neuts (auto) 5.8, Absolute Lymphs (auto) 2.96, Nucleated RBC % 0, Sodium 138, Potassium 3.7, Chloride 108 H, Carbon Dioxide 25.0, Anion Gap 5, BUN 12, Creatinine 0.95, Estim Creat Clear Calc 129.54, Est GFR (MDRD) Af Amer 106, Est GFR (MDRD) Non-Af 88, BUN/Creatinine Ratio 12.6, Glucose 141 H, Calcium 9.3, Troponin I High Sens 9 08/15/23 03:03: Troponin I High Sens 37 08/15/23 08:25: Troponin I High Sens 49, TSH 0.92 08/15/23 08:26: POC Glucose 131 H 08/15/23 11:55: POC Glucose 135 H Rhythm Strip Rhythm Strip: A-fib Rate: 155 Ectopy: None Cardiology Labs/Tests 08/15/23 00:54: WBC 9.6, RBC 5.53, Hgb 17.7 H, Hct 51.2, MCV 92.6, MCH 32.0, MCHC 34.6, Plt Count 149 L, MPV 11.7, Immature Gran % (Auto) 0.400, Neut % (Auto) 60.2, Lymph % (Auto) 30.7, [place] % (Auto) 7.4, Eos % (Auto) 0.8, Baso % (Auto) 0.5, Absolute Neuts (auto) 5.8, Nucleated RBC % 0, Sodium 138, Potassium 3.7, Chloride 108 H, Carbon Dioxide 25.0, Anion Gap 5, BUN 12, Creatinine 0.95, Est GFR (MDRD) Af Amer 106, Est GFR (MDRD) Non-Af 88, BUN/Creatinine Ratio 12.6, Glucose 141 H, Calcium 9.3 Rhythm: EKG: ECHO: Stress Test: Cardiac Cath: PCI: CT Surgery: Holter monitor: EPS: PPM: CXR: Chest CT Scan: Radiography Diagnostic Testing: Radiology Impression Chest X-Ray 08/15/23 00:36 IMPRESSION: Multiple bands of discoid atelectasis or scarring in the lower lungs. No pneumonia or pulmonary edema. Electronically Signed: Seb Quigley MD at 1:23 EDT ,
--- NOTE | 2023-08-15 13:17 | CHAPLAIN ---
Type of Pastoral Visit _x__ Initial Visit ___ Follow-up Visit ___ On-call Visit ___ General Patient Visit ___ Spiritual Assessment ___ Family Conference ___ Bereavement ___ Rapid Response ___ Code Blue ___ Other (describe below) Pastoral Care Referral From _x__ Patient ___ Family ___ Nurse ___ Physician ___ Chief Information Officer ___ It Support Specialist ___ Other (describe below) Sacrament/Intervention ___ Active listening ___ Anointing ___ Samaritan ___ Bereavement ___ Communion ___ [place] exploration ___ ___ Life review ___ Prayer ___ Reconciliation ___ Sacrament of Sick _x__ Supportive presence ___ Wedding ___ Other (describe below) Pastoral Comments patient is sitting up in bed and states that he is doing better and has no concerns; spouse is at bedside; pt denies further support
--- NOTE | 2023-08-15 14:04 | DS.PCM_ITS ---
Providers Date of Admission: 08/15/23 Date of Discharge: 08/15/23 Primary Care Physician: Dr. Jayden Love, Consultations 08/15/23 04:21 Consult: Cardiology Routine Consulting Provider: Tony Arcos Reason for Consult: afib rvr EMERGENT Consult: No MD Notified: Yes Date Notified: 08/15/23 Time Notified: 08:14 Method of Notification: Text Reason For Visit: AFIB RVR Diagnosis Discharge Diagnosis (1) Paroxysmal atrial fibrillation: Status: Acute Code(s): I48.0 - Paroxysmal atrial fibrillation (2) Coronary artery disease: Status: Acute Code(s): I25.10 - Atherosclerotic heart disease of [place] coronary artery without angina pectoris (3) Aortic valve stenosis, mild: Status: Acute Code(s): I35.0 - Nonrheumatic aortic (valve) stenosis (4) Hypertension: Status: Chronic Code(s): I10 - Essential (primary) hypertension (5) Dyslipidemia: Status: Acute Code(s): E78.5 - Hyperlipidemia, unspecified (6) diabetes mellitus type 2: Status: Chronic (7) CHERYL on CPAP: Status: Chronic Code(s): G47.33 - Obstructive sleep apnea (adult) (pediatric) (8) Obesity (BMI 30-39.9): Status: Acute Code(s): E66.9 - Obesity, unspecified Medications at Discharge Home Medications pantoprazole 40 mg tablet,delayed release 40 mg PO DAILY 01/05/15 cholecalciferol (vitamin D3) 100 mcg (4,000 unit) capsule 4,000 unit PO DAILY PRN vitamin deficiency 05/13/19 acyclovir 400 mg tablet 400 mg PO BID 11/22/21 aspirin 81 mg tablet,delayed release (Adult Aspirin Regimen) 81 mg PO DAILY 11/22/21 dexamethasone sodium phosphate 0.1 % eye drops 1 drp otic (ear) ONCE 11/22/21 empagliflozin 25 mg tablet (Jardiance) 10 mg PO QAM 11/22/21 albuterol sulfate 90 mcg/actuation aerosol inhaler 2 puff inhalation Q4H PRN PRN wheezing 08/15/23 apixaban 5 mg tablet (Eliquis) 5 mg PO BID #60 tabs 08/15/23 carvedilol 12.5 mg tablet 12.5 mg PO BID #60 tabs 08/15/23 clopidogrel 75 mg tablet 75 mg PO DAILY 08/15/23 losartan 25 mg tablet 50 mg PO DAILY 08/15/23 nitroglycerin 0.4 mg sublingual tablet 0.4 mg sublingual Q5M PRN chest pain 08/15/23 rosuvastatin 20 mg tablet 20 mg PO QHS 08/15/23 semaglutide 0.25 mg or 0.5 mg (2 mg/3 mL) subcutaneous pen injector (Ozempic) 0.25 mg subcut QWEEK DIABETES 08/15/23 Hospital Course Operations None Procedures 2-D Echocardiogram Summary of Care Provided Minutes Spent on Discharge: 55 Hospital Course: Patient is a 53-year-old male with a past medical history as outlined was admitted through the ED on 08/15/2023 with a complaint of shortness of breath and chest pain. Patient had had CAD with a stent placed in April and had 6 had episodic bouts of shortness of breath and chest pain since then. He said he is usually resolved on their own. A few weeks prior to admission his heart rate had been irregular when he was looking at his watch but said he subsequently checked it and was normal.On the day of discharge, patient noted that he had the intermittent palpitations again, and also flt dizzy. he came in to the ED and was found to be in afib with RVR. He was given Cardizem push and subsequently converted to normal sinus rhythm. He therefore did not require the Cardizem drip. His CHADVASC score was 2. Cardiology was consulted. His troponins were not elevated. Cardiology was consulted and 2D echo was done which showed EF of 65% with mild concentric LV hypertrophy and mild aortic stenosis. Cardiology reviewed patient and patient had his home carvedilol dose increased to 12.5mg bid; he was also placed on eliquis 5mg bid. He was discharged home on 08/15/2023 on PO carvedilol 12.5mg bid and eliquis 5mg bid. He is to follow up with cardiology and his PCP within 1-2 weeks. Patient seen and examined prior to discharge. He had no active complaints and had an uneventful night. Review of systems is otherwise negative. Labs and vitals reviewed. Home meds reviewed and reconciled. Physical Exam Const alert, oriented x3 and no apparent distress Constitutional Narrative: obese General Appearance: cooperative, comfortable and well kempt Orientation / Consciousness: awake Exam Limitations: no limitations Nutritional Appearance: obese HEENT normocephalic, head/scalp atraumatic, hearing grossly normal bilaterally and moist oral mucous membranes Mouth: oral and palatal mucosa normal Eyes PERRL, EOMs intact bilaterally and conjunctivae normal Neck no lymphadenopathy and supple Resp normal respiratory effort, no retractions, no use of accessory muscles and clear to auscultation bilaterally Cardio regular rate, regular rhythm, S1 normal heart sound, S2 normal heart sound and no murmurs GI normal to inspection, nondistended, normoactive bowel sounds, soft to palpation, non-tender and non-distended Extremity normal to inspection, full ROM and no clubbing, cyanosis or edema Skin no rashes or lesions noted Neuro oriented x3, CN's II-XII intact bilaterally, moves all extremities, no focal motor deficits and no sensory deficits noted Sensorium / Orientation: awake and alert Motor Exam: strength 5/5 throughout Psych affect normal Weight / BMI Weight Weight: 302 lb 0.533 oz Body Mass Index (BMI) 38.7 ABG / Lab / Microbiology Data 08/15/23 00:54 08/15/23 00:54 Laboratory: Laboratory Results - last 24 hr 08/15/23 00:54: WBC 9.6, RBC 5.53, Hgb 17.7 H, Hct 51.2, MCV 92.6, MCH 32.0, MCHC 34.6, RDW Std Deviation 43.0, RDW Coeff of Kayce 12.6, Plt Count 149 L, MPV 11.7, Immature Gran % (Auto) 0.400, Neut % (Auto) 60.2, Lymph % (Auto) 30.7, [place] % (Auto) 7.4, Eos % (Auto) 0.8, Baso % (Auto) 0.5, Absolute Neuts (auto) 5.8, Absolute Lymphs (auto) 2.96, Nucleated RBC % 0, Sodium 138, Potassium 3.7, Chloride 108 H, Carbon Dioxide 25.0, Anion Gap 5, BUN 12, Creatinine 0.95, Estim Creat Clear Calc 129.54, Est GFR (MDRD) Af Amer 106, Est GFR (MDRD) Non-Af 88, BUN/Creatinine Ratio 12.6, Glucose 141 H, Calcium 9.3, Troponin I High Sens 9 08/15/23 03:03: Troponin I High Sens 37 08/15/23 08:25: Troponin I High Sens 49, TSH 0.92 08/15/23 08:26: POC Glucose 131 H 08/15/23 11:55: POC Glucose 135 H Radiography Diagnostic Testing: Radiology Impression Chest X-Ray 08/15/23 00:36 IMPRESSION: Multiple bands of discoid atelectasis or scarring in the lower lungs. No pneumonia or pulmonary edema. Electronically Signed: Seb Quigley MD at 1:23 EDT , Echocardiogram 08/15/23 04:21 Interpretation Summary The estimated ejection fraction is 65 %. Mild concentric left ventricular hypertrophy. Mild aortic stenosis. The study was technically difficult. Contrast injection was performed. Compared to prior study, there is no significant change. Ordering Physician: Jordan Campos Referring Physician: Jayden Love Performed By: Amy Meraz, ANGELA, RVT D/C Instructions Discharge Diet: Low fat / Low cholesterol Discharge Activity: Return to Normal Activity Weight Bearing Status: Weight bearing as tolerated Call your doctor if you observe: Fever of 101 or Higher, Shortness of breath, Dizziness, Swelling in the ankles and Chest pain Meaningful Use Info Meaningful Use Meaningful Use Diagnoses (Choose all that apply): None applicable Ischemic Stroke Statin Dosing Therapy Reference: STATIN DOSE THERAPY REFERENCE: * Patients > 75 years receive moderate or high dose statin therapy. * Patients 75 years or YOUNGER should receive HIGH intensity statin dose unless contraindicated. You will be required to document reason for non-treatment if statin daily dose does not meet guidelines. HIGH DOSE STATIN THERAPY DAILY Atorvastatin > than or = to 40 mg Rosuvastatin > than or = to 20 mg Amlodipine + Atorvastatin > than or = to 2.5/40 mg Ezetimibe + Simvastatin 10/80 mg Simvastatin 80mg Discharge Plan Admission Admit Date/Time: 08/15/23 02:33 Primary Reason for Your Visit: afib Attending Provider: Morenita Taylor Primary Care Provider: Jayden Love Consulting Providers: Jordan Campos; Tony Arcos Instructions Patient Instructions: AFib Dc Discharge Orders/Prescriptions Prescriptions: New carvedilol 12.5 mg Tablet 12.5 mg PO BID Qty: 60 2RF Eliquis 5 mg Tablet 5 mg PO BID Qty: 60 2RF Continued cholecalciferol (vitamin D3) 4,000 unit capsule 4,000 unit PO DAILY PRN (Reason: vitamin deficiency ) Patient Comments: taking intermittently acyclovir 400 mg tablet 400 mg PO BID Patient Comments: TAKE 1 TABLET BY MOUTH TWICE DAILY aspirin [Adult Aspirin Regimen] 81 mg tablet,delayed release (DR/EC) 81 mg PO DAILY dexamethasone sodium phosphate 0.1 % drops 1 drp otic (ear) ONCE Jardiance 25 mg tablet 10 mg PO QAM pantoprazole 40 MG tablet 40 mg PO DAILY Patient Comments: acid reflux clopidogrel 75 mg tablet 75 mg PO DAILY losartan 25 mg tablet 50 mg PO DAILY albuterol sulfate 90 mcg/actuation HFA aerosol inhaler 2 puff INHALATION Q4H PRN PRN (Reason: wheezing) rosuvastatin 20 mg tablet 20 mg PO QHS nitroglycerin 0.4 mg tablet, sublingual 0.4 mg sublingual Q5M PRN (Reason: chest pain) Ozempic 0.25 mg or 0.5 mg (2 mg/3 mL) pen injector 0.25 mg subcut QWEEK Patient Comments: INJECTS ON SUNDAY Discontinued carvedilol 6.25 mg tablet 6.25 mg PO BID Referrals / Follow Up: Jayden Love DO [Primary Care Provider] - Within 2 Weeks Disposition Disposition (needs filled in before D/C Order can be placed): Home, Self Care Charges/Coding Visit Charges Inpatient E&M: 23115 Disch Hosp >30min
--- NOTE | 2023-08-15 14:40 | CASEMGMT ---
Pt has an order for DC. Pt is being prescribed Eliquis. TC to pharmacy and they state the pt has a 0$ co-pay. RN CM to pt room at this time and pt updated with this information. Pt denies further questions or concerns going home and is ready for DC.
== END 2023-08-15 15:40 | disposition home or self-care (01) | DRG 310 ==
LOC: ED 02:09 → ICU 07:09
PROVIDERS: Emergency Provider Emergency Medicine; PCP Student in an Organized Health Care Education/Training Program; Visit Provider Student in an Organized Health Care Education/Training Program
DX: I48.0 Paroxysmal atrial fibrillation (principal); E11.9 Type 2 diabetes mellitus without complications; I10 Essential (primary) hypertension; I08.2 Rheumatic disorders of both aortic and tricuspid valves; I25.10 Atherosclerotic heart disease of native coronary artery without angina pectoris; E78.5 Hyperlipidemia, unspecified; G47.33 Obstructive sleep apnea (adult) (pediatric); E66.9 Obesity, unspecified; Z68.38 Body mass index [BMI] 38.0-38.9, adult; Z95.5 Presence of coronary angioplasty implant and graft; Z79.82 Long term (current) use of aspirin; Z79.84 Long term (current) use of oral hypoglycemic drugs; Z79.85 Long-term (current) use of injectable non-insulin antidiabetic drugs; Z79.899 Other long term (current) drug therapy; Z87.891 Personal history of nicotine dependence; R42 Dizziness and giddiness; R06.02 Shortness of breath
CPT/HCPCS: 71045; 80048; 82962; 84443; 84484; 85025; 93005; 93306; 96365; 96366; 96372; 96375; 96376; 99221; 99285; J7030; Q9957; A4216; C8929; G0378

== ENCOUNTER 2023-08-23 21:40 | Emergency (ER) | payer OTHER, SELFPAY ==
[2023-08-10 08:05] VITALS: BMI 38.5
[2023-08-23 21:41] VITALS: BP 138/87; PULSE 66; RESP 15; TEMP 36.5; O2SAT 97; BMI 39.1
--- NOTE | 2023-08-23 22:16 | RAD_ITS ---
EXAM: XR CHEST, 2 VIEWS CLINICAL INDICATION: chest pain TECHNIQUE: Frontal and lateral views of the chest. COMPARISON: 08/15/2023 FINDINGS: LUNGS AND PLEURAL SPACES: Minimal bibasilar atelectasis is similar to the prior examination. No additional airspace disease. No pneumothorax. No effusion. HEART: No significant abnormality. Cardiac silhouette not enlarged. MEDIASTINUM: Central airways and mediastinal contour are unremarkable. BONES/JOINTS: No significant abnormality. No acute fracture. SOFT TISSUES: No significant abnormality. VASCULATURE: Atherosclerosis. RAD/Chest PA and Lateral IMPRESSION: Minimal bibasilar atelectasis is similar to the prior examination. No additional airspace disease. Electronically Signed: Ryan Jhaveri DO at 22:31 EDT ,
[2023-08-23 22:24] LABS: Absolute Lymphocyte Count 2.38 X10^3/uL (0.83-4.51); Absolute Neutrophil Count 5.1 X10^3/uL (2.0-7.7); Basophil# 0.03 X10^3/uL; Basophil% 0.4 % (0-1); Eosinophil# 0.06 X10^3/uL; Eosinophils% 0.7 % (0-5); Hematocrit 47.7 % (40-54); Hemoglobin 16.9 g/dL (13.0-16.5); Lymphocyte # 2.38 X10^3/ul (0.83-4.51); Lymphocyte % 28.5 % (19-41); Mean Corp Hgb Conc 35.4 g/dL (32-36); Mean Corpuscular Hgb 32.8 pg (27.0-32.0); Mean Corpuscular Volume 92.4 fL (80-94); Mean Platelet Vol. 11.5 fl (6.2-12.0); Monocyte# 0.71 X10^3/uL; Monocyte% 8.5 % (0-10); NRBC Flagged by Analyzer 0 % (0-5); Neutrophil # 5.14 X10^3/uL (2.7-7.7); Neutrophil % 61.4 % (47-70); Platelet Count 161 K/mm3 (150-450); RBC Distribution Width CV 12.8 % (11.6-14.6); RBC Distribution Width SD 43.5 fl (35.1-43.9); Red Blood Count 5.16 M/mm3 (4.6-6.2); White Blood Count 8.4 K/mm3 (4.4-11.0)
[2023-08-23 22:44] LABS: Anion Gap 6 (5-15); BUN 15 mg/dL (7-18); BUN/Creat Ratio 17.4 RATIO (10-20); Chloride 107 mmol/L (98-107); Creatinine, Serum 0.86 mg/dL (0.70-1.30); EST Glomerular Filtration Rate 98 mL/min (>60); Est Glom Filt Rate - Afr Amer 119 mL/min (>60); Estimated Creatinine Clearance 143.64 ml/min; Glucose 164 mg/dL (74-106); Magnesium 2.2 mg/dL (1.6-2.6); Potassium 3.4 mmol/L (3.5-5.1); Sodium Level 139 mmol/L (136-145); Troponin-I HS 3 pg/mL (3.0-78.0)
[2023-08-23 22:52] VITALS: BP 122/64; PULSE 68; RESP 16; O2SAT 94
[2023-08-23 23:00] VITALS: BP 110/70; PULSE 69; RESP 15; O2SAT 95
[2023-08-24] VITALS: BP 119/75; PULSE 68; RESP 16; O2SAT 96
[2023-08-24 01:00] VITALS: BP 114/75; PULSE 61; RESP 18; O2SAT 97
[2023-08-24 01:05] LABS: Troponin-I HS < 3 pg/mL (3.0-78.0)
--- NOTE | 2023-08-24 01:17 | EDS_ITS ---
HPI History of Present Illness Chief Complaint: Chest Pain Informant: patient and spouse/S.O. Narrative Narrative: Patient is a 53-year-old male with past medical history of GERD hyperlipidemia and CAD status post stent placement in April. He states he was also recently admitted secondary to atrial fibrillation/flutter and is currently on Eliquis. He reports he has been taking his medications as directed. He states that this evening he developed a headache that was more left-sided than right and then progressed to chest discomfort. He states last time he had a heart attack that symptoms started the same way. He states he waited roughly 90 minutes and symptoms and that resolved so he went to the ER for evaluation. He does report that upon arrival to the ER symptoms have spontaneously improved [facility] Medical History Mitral valve disorder Aortic valve disorder Obesity, Class III, BMI 40-49.9 (morbid obesity) Fatty infiltration of liver LFT elevation Former smoker Solitary thyroid nodule Osteoarthritis CHERYL on CPAP GERD (gastroesophageal reflux disease) Hyperlipemia diabetes mellitus type 2 Home Medications ?Medication ?Instructions ?Recorded ?Last Taken ?Type pantoprazole 40 mg tablet,delayed 40 mg PO DAILY 01/05/15 01/05/15 History release cholecalciferol (vitamin D3) 100 4,000 unit PO DAILY PRN vitamin 05/13/19 08/14/23 History mcg (4,000 unit) capsule deficiency acyclovir 400 mg tablet 400 mg PO BID 11/22/21 Unknown History dexamethasone sodium phosphate 0.1 1 drp otic (ear) ONCE 11/22/21 Unknown History % eye drops empagliflozin 25 mg tablet 10 mg PO QAM 11/22/21 Unknown History (Jardiance) albuterol sulfate 90 mcg/actuation 2 puff inhalation Q4H PRN PRN 08/15/23 Unknown History aerosol inhaler wheezing apixaban 5 mg tablet (Eliquis) 5 mg PO BID #60 tabs 08/15/23 Unknown Rx carvedilol 12.5 mg tablet 12.5 mg PO BID #60 tabs 08/15/23 Unknown Rx clopidogrel 75 mg tablet 75 mg PO DAILY 08/15/23 Unknown History rosuvastatin 20 mg tablet 20 mg PO QHS 08/15/23 Unknown History semaglutide 0.25 mg or 0.5 mg (2 0.25 mg subcut QWEEK DIABETES 08/15/23 Unknown History mg/3 mL) subcutaneous pen injector (Ozoboxo) losartan 50 mg tablet 50 mg PO DAILY 08/23/23 Unknown History Allergy/AdvReac Type Severity Reaction Status Date / Time ticagrelor (From Brilinta) Allergy Rash Verified 08/23/23 21:41 Family History Mother Colon cancer Hypertension Father Heart disease Pacemaker Daughter Cancer thyroid Grandmother Lung cancer CVA (cerebral vascular accident) Aunt Diabetes Surgical History History of esophagogastroduodenoscopy (EGD) Status post biopsy of thyroid gland (~05/2019) History of surgical removal of ganglion cyst (~1999) History of hernia repair (~2002) History of colonoscopy (~09/2015) History of cholecystectomy (~1995) History of appendectomy (~1976) History of tonsillectomy and adenoidectomy (~1970) Social History Smoking Status: Former smoker alcohol intake: never substance use type: does not use ROS ROS ED Constitutional Constitutional ED: Denies chills or fever(s) Eyes Eyes: Denies blurry vision or change in vision ENT ENT ED: Denies sore throat Cardiovascular Cardiovascular: Reports chest pain; Denies palpitations or racing heartbeat Respiratory/Chest Respiratory/Chest: Denies cough or dyspnea Gastrointestinal Gastrointestinal: Denies abdominal pain, diarrhea, nausea or vomiting Genitourinary Genitourinary ED: Denies dysuria Musculoskeletal Musculoskeletal: Denies myalgias Integumentary Denies rash Neurologic Neurologic: Reports headache(s) Hematologic/Lymphatic Hematologic/Lymphatic: Reports easy bleeding and easy bruising EXAM Physical Exam Const Vital Signs: 08/23/23 21:41 08/23/23 22:52 08/23/23 23:00 Temperature 97.7 F L Temperature Source Temporal Pulse Rate 66 68 69 Respiratory Rate 15 16 15 Blood Pressure 138/87 H 122/64 H 110/70 Blood Pressure Mean 104 83 83 Pulse Ox 97 94 95 Oxygen Delivery Method Room Air Room Air 08/24/23 00:00 08/24/23 01:00 08/24/23 01:33 Temperature 97.9 F Temperature Source Pulse Rate 68 61 61 Respiratory Rate 16 18 18 Blood Pressure 119/75 114/75 115/69 Blood Pressure Mean 89 88 84 Pulse Ox 96 97 95 Oxygen Delivery Method Room Air Room Air Positive well nourished, well developed and obese General Appearance ED: well developed; Negative for pallor Nutritional Appearance: obese HEENT HEENT Narrative: Normocephalic atraumatic Eyes PERRL and EOMs intact bilaterally General Eye ED: Negative for pale conjunctiva or scleral icterus Neck supple and no JVD Neck Narrative: No nuchal rigidity or meningeal signs noted Chest Wall palpation of chest normal Chest Narrative: No bony deformity or crepitance Resp normal respiratory effort and clear to auscultation bilaterally Cardio regular rate and regular rhythm Rate: other Other Details: Heart is regular rate and rhythm There is a grade 3 out of 6 holosystolic murmur noted There is a left carotid bruit noted as well Radial and carotid pulses equal and symmetric GI normal to inspection, nondistended, normoactive bowel sounds, non-tender, non- distended and no masses GI Narrative: No voluntary guarding or rigidity or pulsatile mass Auscultation: normoactive bowel sounds Palpation: soft Extremity normal to inspection Extremity Narrative: Negative Homans' sign bilaterally Neuro oriented x3, CN's II-XII intact bilaterally and no sensory deficits noted Neuro Narrative: Cranial nerves II through XII are grossly intact there are no focal neurologic deficits. No pronator drift no dysmetria no truncal ataxia. NIH stroke scale score of 0 Sensorium / Orientation: alert Motor Exam: strength 5/5 throughout Psych mental status grossly normal Skin no rashes or lesions noted and no wounds General Skin Exam: Negative for jaundice or pallor MDM MDM MDM Narrative Medical decision making narrative: Patient arrived to the ER mildly hypertensive otherwise with stable vitals. He had a normal neurologic exam and reported spontaneous resolution of his symptoms. As he reported that his previous heart attack started in similar way and he has a known history of CAD there is concern this could be related to acute coronary syndrome. There is also concern it could be secondary to electrolyte abnormality or potential lung pathology such as pneumonia or pneumothorax. We discussed potential head CT as he is on Xarelto and there is concern for spontaneous bleed. However the patient did not have any report or signs of trauma and he had no headache upon evaluation which goes against internal bleeding and does not want a head CT at this time. Patient's workup revealed normal troponins without EKG changes or any obvious dysrhythmia noted while on the monitor. Therefore at this time as patient's had spontaneous resolution of symptoms since arrival negative cardiac workup and vitals have improved at rest there is no need for readmission and he is otherwise safe for discharge History & Record Review Discussion w/independent historian: Patient and Significant other Lab Data Labs: Laboratory Results - last 24 hr 08/23/23 08/23/23 00:17 21:52 WBC 8.4 RBC 5.16 Hgb 16.9 H Hct 47.7 MCV 92.4 MCH 32.8 H MCHC 35.4 RDW Std Deviation 43.5 RDW Coeff of Kayce 12.8 Plt Count 161 MPV 11.5 Immature Gran % (Auto) 0.500 Neut % (Auto) 61.4 Lymph % (Auto) 28.5 [place] % (Auto) 8.5 Eos % (Auto) 0.7 Baso % (Auto) 0.4 Absolute Neuts (auto) 5.1 Absolute Lymphs (auto) 2.38 Nucleated RBC % 0 Sodium 139 Potassium 3.4 L Chloride 107 Carbon Dioxide 26.0 Anion Gap 6 BUN 15 Creatinine 0.86 Estim Creat Clear Calc 143.64 Est GFR (MDRD) Af Amer 119 Est GFR (MDRD) Non-Af 98 BUN/Creatinine Ratio 17.4 Glucose 164 H Calcium 9.0 Magnesium 2.2 Troponin I High Sens < 3 L 3 Radiography Diagnostic Testing: Clinical Impression(s) from Imaging Studies Chest X-Ray 08/23/23 22:16 IMPRESSION: Minimal bibasilar atelectasis is similar to the prior examination. No additional airspace disease. 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 Instructions: ED Chest Pain, Uncertain Cause Prescriptions: No Action cholecalciferol (vitamin D3) 4,000 unit capsule 4,000 unit PO DAILY PRN (Reason: vitamin deficiency ) Patient Comments: taking intermittently acyclovir 400 mg tablet 400 mg PO BID Patient Comments: TAKE 1 TABLET BY MOUTH TWICE DAILY dexamethasone sodium phosphate 0.1 % drops 1 drp otic (ear) ONCE Jardiance 25 mg tablet 10 mg PO QAM pantoprazole 40 MG tablet 40 mg PO DAILY Patient Comments: acid reflux clopidogrel 75 mg tablet 75 mg PO DAILY albuterol sulfate 90 mcg/actuation HFA aerosol inhaler 2 puff INHALATION Q4H PRN PRN (Reason: wheezing) rosuvastatin 20 mg tablet 20 mg PO QHS Ozempic 0.25 mg or 0.5 mg (2 mg/3 mL) pen injector 0.25 mg subcut QWEEK Patient Comments: INJECTS ON SUNDAY carvedilol 12.5 mg Tablet 12.5 mg PO BID Qty: 60 2RF Eliquis 5 mg Tablet 5 mg PO BID Qty: 60 2RF losartan 50 mg tablet 50 mg PO DAILY Primary Care Provider: Jayden Love Referrals: Jayden Love DO [Primary Care Provider] - Activity Restrictions/Additional Instructions: Please discuss with your family doctor and/or pharmacy intake coordinator about obtaining a carotid duplex based on your symptoms and the fact you have a bruit located along your left carotid artery. Continue all of your medications as directed by your doctor as your workup today did not show any signs of acute cardiac dysfunction. Return to the ER should you have any further concerns Print Language: Bengali Disposition Disposition: Home, Self Care Discharge Date/Time: 08/24/23 01:33
[2023-08-24 01:33] VITALS: BP 115/69; PULSE 61; RESP 18; TEMP 36.6; O2SAT 95
== END 2023-08-24 01:33 | disposition home or self-care (01) ==
PROVIDERS: Emergency Provider Emergency Medicine; PCP Student in an Organized Health Care Education/Training Program; Visit Provider Emergency Medicine
DX: R07.89 Other chest pain (principal); I48.0 Paroxysmal atrial fibrillation; E11.9 Type 2 diabetes mellitus without complications; Z79.01 Long term (current) use of anticoagulants; Z87.891 Personal history of nicotine dependence; I25.10 Atherosclerotic heart disease of native coronary artery without angina pectoris; E78.5 Hyperlipidemia, unspecified; K21.9 Gastro-esophageal reflux disease without esophagitis; Z95.5 Presence of coronary angioplasty implant and graft; Z79.85 Long-term (current) use of injectable non-insulin antidiabetic drugs; Z79.899 Other long term (current) drug therapy; R51.9 Headache, unspecified; E66.9 Obesity, unspecified
CPT/HCPCS: 71046; 80048; 83735; 84484; 85025; 93005; 99283; A4216

== ENCOUNTER 2023-08-31 15:15 | Outpatient (RCR) | payer OTHER, SELFPAY ==
[2023-07-11 08:59] VITALS: BMI 38.3
[2023-08-01 00:52] VITALS: BP 132/78
--- NOTE | 2023-08-10 07:33 | PCM.CR.ITP ---
Nutrition - Initial Assessment Weight Mgt (Other Care) Height: 6 ft 2 in Weight:: 300 lb BMI: 38.5 Psychosocial - Initial Assess Target Goals Target Goals Referral to Behavioral Health PS - Interventions: Yes: Attend Stress Management Classes and No: Referral to Behavioral Health if PHQ-9 score >9:, No: Referral to [facility] and No: Referral to Physician if PHQ-9 if score is 5-9: Patient Health Questionnaire PHQ-9 Screening 90-Day Re-eval Assessment: 1. Little interest or pleasure in doing things: Not at all 2. Feeling down, depressed, or hopeless: Not at all 3. Trouble falling or staying asleep, or sleeping too much: Not at all 4. Feeling tired or having little energy: Not at all 5. Poor appetite or overeating: Not at all 6. Feeling bad about yourself -- or that you are a failure or have let yourself or your family down: Not at all 7. Trouble concentrating on things, such as reading the newspaper or watching television: Not at all 8. Moving or speaking so slowly that other people could have noticed. Or the opposite - being so fidgety or restless that you have been moving around a lot more than usual: Not at all 9. Thoughts that you would be better off , or of hurting yourself in some way: Not at all How difficult have these problems made it for you to do your work, take care of things at home, or get along with other people?: Not difficult at all Total Score: 0 Self-Efficacy 6-Item Scale 90-Day Re-eval Assessment: We would like to know how confident you are in doing certain activities. Please select your confidence level for: Fatigue Select Number: 10 Physical Discomfort or Pain Select Number: 10 Emotional Distress Select Number: 10 Other Symptoms or Health Problems Select Number: 10 Different Tasks and Activities Select Number: 10 Medication Select Number: 10 Total Score:: 10 Nutrition Survey Nutrition Survey Instructions Scoring Instructions Exercise - 90-day Assessment Visit Date of Eval: 08/10/23 Session #:: 20 Comments:: Patient has missed 5 of his scheduled sessions Physician Prescribed Exercise Modalities: Treadmill, Airdyne and NuStep Frequency: 3x/week for 12 weeks [36 sessions] Intensity: 60-80% of age predicted maximum heart rate reserve Duration: 30 - 45 minutes Current METSs:: 7.0 Target Heart Rate:: 100-116 Current RPE:: 12 Maximum Excercise HR:: 111 Resting Blood Pressure: 130/76 Maximum Exercise Blood Pressure: 184/90 EKG Type: NSR to sinus tach occasional PACs PVCs Current Physical Activity or Exercising minutes: 37:20 Outcomes & Goals Goals:: Verbalizes understanding of THR, RPE & goal METS by session 6, Documents in home exercise log/reports 30 min aerobic 5 day/wk by DC and Demonstrates accurate pulse taking by DC Intervention & Plan Exercise Program Goals: Instruct on personal THR & RPE, Instruct on MET level & personal MET goal, Show patient to take own pulse /validate performance until accurate and Instruct on home exercise 30-day Reassessments 30 day Reassessments:: Met Physical Activity Home Exercise Physical Activity - Home Exercise: Safe Exercise, Warm-up, Self-monitoring, Cool-Down, Home Exercise > 30 min Daily and Sitting Time <3 hours/daily Outcomes & Goals Outcomes/Goals: Demonstrates correct Warm-up/exercise Cool-Down (S3) if = 2.5 METs, Verbalizes symptoms of exercise intolerance by Session 3 (S3) and Demonstrate safe equipment use (S3) & follows exercise prescrition (6) Intervention & Plan Plan/Intervention: Instruct warm-up & cool-down if exercising at > 2 METs, Instruct on symptoms of exercise intolerance & actions to take, Instruct & monitor on saf and Assess intial functional capacity & safety risk 30-day Reassessments 30 day Reassessments:: Met Nutrition - 30-Day Assessment Weight Mgt (Other Care) Height: 6 ft 2 in Weight:: 300 lb BMI: 38.5 Nutrition - 60-Day Assessment Weight Mgt (Other Care) Height: 6 ft 2 in Weight:: 300 lb BMI: 38.5 Core - 90 Day Assessment Visit Date of Eval: 08/10/23 Session #:: 20 Medication Compliance Preventative Medication(s):: Aspirin, Clopidogrel/P2Y12 inhibit, Statin/lipid and Beta gerson H/O mental health issues: depression, anxiety, or addiction?: No Doesn?t believe in the benefits of treatment?: No Believes medications are unnecessary or harmful?: No Has a concern about medication side effects?: No Expresses concern over the cost of medications?: No Outcomes/Goals: Verbalizes medications,desired effect & common side effects @ DC, Pt self-reports following medication regimen and Keeps card in wallet w/medications listed by DC Interventions/plans: Instruct on medication effects & side effects, Review medication list w/patient every two weeks and Instruct importance of taking meds as ordered & assist problem solving 30-day Reassessments:: Met Tobacco Use Tobacco Use: Non-smoker Hypertension Hypertension Diagnosis:: Hypertension ICD-10 I10 Resting Blood Pressure:: 130/76 [place] [employer] Hypertension Guidelines Peak Exercise Blood Pressure:: 184/90 Outcomes/Goals: Able to verbalize/achieve optimal blood pressure <130/80 and Incorporates diet changes & exercise for blood pressure control by DC Interventions/plan: Instruct on optimal blood pressure, hypertension & medications and Instruct on effects of sodium, alcohol, stress, exercise &hypertension 30 day Reassessments:: Met Tobacco Cessation Referral Smoking Cessation Referral:: No Individual Education/Counseling:: No Education Schedule Given:: Yes Psychosocial - 30-Day Assess Target Goals Target Goals Referral to Behavioral Health PS - Interventions: Yes: Attend Stress Management Classes and No: Referral to Behavioral Health if PHQ-9 score >9:, No: Referral to [facility] and No: Referral to Physician if PHQ-9 if score is 5-9: Psychosocial - 60-Day Assess Target Goals Target Goals Referral to Behavioral Health PS - Interventions: Yes: Attend Stress Management Classes and No: Referral to Behavioral Health if PHQ-9 score >9:, No: Referral to [facility] and No: Referral to Physician if PHQ-9 if score is 5-9: Psychosocial - 90-Day Assess VIsit Date of Eval: 08/10/23 Session #:: 20 Not Applicable: Yes History of previous Mental disease:: No Target Goals Target Goals Psychosocial Test Tool Used:: PHQ-9 Questionnaire phq-9 Severity Referral to Behavioral Health PS - Interventions: Yes: Attend Stress Management Classes and No: Referral to Behavioral Health if PHQ-9 score >9:, No: Referral to [facility] and No: Referral to Physician if PHQ-9 if score is 5-9: Outcomes/Goals: See list Psychosocial Outcomes/Goals:: ID's personal stressors & 2 strategies to manage stress by discharge Intervention/Plan: See List Interventions/Plan:: Assess stressors,coping strategies & signs of derpression on admission, Instruct/assist pt to develop coping & personal stress Mgt strategies, Instruct patient to recognize signs & symptoms of depression and Instruct patient to recog 30-day Reassessments: 30 day Reassessments:: Met Psychosocial - Final Assessmen Target Goals Target Goals Referral to Behavioral Health PS - Interventions: Yes: Attend Stress Management Classes and No: Referral to Behavioral Health if PHQ-9 score >9:, No: Referral to [facility] and No: Referral to Physician if PHQ-9 if score is 5-9: Nutrition - 90-Day Assessment Program Goals Nutrition Program Goals Patient has diagnosis of Hyperlipidemia (ICD E78)?: Yes Visit Date of Eval: 08/10/23 Session #:: 20 Cholesterol/Lipids (Other Core Measures) Determine presence & major risk factors that modify LDL goal: Hypertension or hypertensive medication and Age men > 45 years; women >/= 55 years Outcomes/Goals: Pt IDs own risk factors & lifestyle modifications by Session 10, Verbalizes symptoms of angina & response by session 3. and Pt independently manages Intervention/Plan: Instruct on personal lipid levels & lipid goals/NCEP guidelines and Instruct on cholesterol Referral to dietitian:: Yes 30-day Reassessments:: Met Diabetes (Other Core Measures) Diabetes Type: Diagnosis Type II ICD-10 E11 Insulin dependent injection/pump?: Yes Non-Insulin Dependent?: Yes Do you monitor your blood sugar at home?: Yes Referral to Diabetic Clinic:: Yes Outcomes/Goals:: Able to state symptoms of, Able to state and Able to state Intervention/Plan:: Instruct on, Refer to and Instruct on 30-day Reassessments:: Met Weight Mgt (Other Care) Not Applicable: Yes Height: 6 ft 2 in Weight:: 300 lb BMI: 38.5 Diagnosis Overweight/Obesity BMI> 30% ICD-10 E66: Yes Diagnosis High BMI/Morbid Obesity BMI> 35% ICD-10 Z68: Yes Outcomes/Goals: Pt sets, maintains & shows weight loss goal & trend during rehab Intervention/Plan: Instruct on ideal BMI & set weight loss goal w/patient, Assist pt to ID & incorporate diet changes for weight loss by S9, Refer to Structured Weight Loss program as appropriate and Encourage goal of using 250-300dcal per session for weight loss 30 day Reassessments:: Progressing Healthy Eating Habits Will attend diet classes:: Yes Outcomes/Goals:: Consume diet rich in vegs,fruits,whole grain/high fiber,fish,lean meat and Limit sat/trans fats,cholesterol & added salts & sugars Intervention/Plan:: Assess current eating habits 30-day Reassessments:: Not Met Reassessment Notes & Comments:: no change in weight for patient Education Gave educational materials for:: Signs & symptoms of hypoglycemia, Signs & symptoms of hyperglycemia, Relate diabetes to coronary artery disease and Healthy eating Nutrition - Final Assessment Weight Mgt (Other Care) Height: 6 ft 2 in Weight:: 300 lb BMI: 38.5
[2023-08-10 08:05] VITALS: BP 130/76; BMI 38.5
== END 2023-08-31 23:59 ==
LOC: CR 15:15
PROVIDERS: PCP Student in an Organized Health Care Education/Training Program
DX: Z95.5 Presence of coronary angioplasty implant and graft (principal)
CPT/HCPCS: 93798

== ENCOUNTER 2023-09-28 15:15 | Outpatient (RCR) | payer OTHER, SELFPAY ==
[2023-08-10 08:05] VITALS: BMI 38.5
[2023-09-01 02:27] VITALS: BP 130/76; BP 132/78
--- NOTE | 2023-09-10 07:26 | CR.ITP_ITS ---
Exercise - Initial Assessment Physician Prescribed Exercise Modalities: Treadmill, Schwinn Airdyne AD-7 and SciFit Stepper Nutrition - Initial Assessment Weight Mgt (Other Care) Height: 6 ft 2 in Weight:: 300 lb BMI: 38.5 Psychosocial - Initial Assess Target Goals Target Goals Patient Health Questionnaire PHQ-9 Screening 90-Day Re-eval Assessment: 1. Little interest or pleasure in doing things: Not at all 2. Feeling down, depressed, or hopeless: Not at all 3. Trouble falling or staying asleep, or sleeping too much: Not at all 4. Feeling tired or having little energy: Not at all 5. Poor appetite or overeating: Not at all 6. Feeling bad about yourself -- or that you are a failure or have let yourself or your family down: Not at all 7. Trouble concentrating on things, such as reading the newspaper or watching television: Not at all 8. Moving or speaking so slowly that other people could have noticed. Or the opposite - being so fidgety or restless that you have been moving around a lot more than usual: Not at all 9. Thoughts that you would be better off , or of hurting yourself in some way: Not at all How difficult have these problems made it for you to do your work, take care of things at home, or get along with other people?: Not difficult at all Total Score: 0 Self-Efficacy 6-Item Scale 90-Day Re-eval Assessment: We would like to know how confident you are in doing certain activities. Please select your confidence level for: Fatigue Select Number: 10 Physical Discomfort or Pain Select Number: 10 Emotional Distress Select Number: 10 Other Symptoms or Health Problems Select Number: 10 Different Tasks and Activities Select Number: 10 Medication Select Number: 10 Total Score:: 10 Nutrition Survey Nutrition Survey Instructions Scoring Instructions Exercise - 30-day Assessment Physician Prescribed Exercise Modalities: Treadmill, Schwinn Airdyne AD-7 and SciFit Stepper Exercise - 60-day Assessment Physician Prescribed Exercise Modalities: Treadmill, Schwinn Airdyne AD-7 and SciFit Stepper Exercise - 90-day Assessment Visit Date of Eval: 09/10/23 Session #:: 28 Physician Prescribed Exercise Modalities: Treadmill, Schwinn Airdyne AD-7 and SciFit Stepper Frequency: 3x/week for 12 weeks [36 sessions] Intensity: 60-80% of age predicted maximum heart rate reserve Duration: 30 - 45 minutes Current METSs:: 7.1 Target Heart Rate:: 100-116 Current RPE:: 12 Maximum Excercise HR:: 104 Resting Blood Pressure: 112/68 Maximum Exercise Blood Pressure: 158/80 EKG Type: NSR to ST rare PAC's occas PVC Outcomes & Goals Goals:: Verbalizes understanding of THR, RPE & goal METS by session 6, Documents in home exercise log/reports 30 min aerobic 5 day/wk by DC, Demonstrates accurate pulse taking by DC and Other additional outcome/goals: see below Intervention & Plan Exercise Program Goals: Instruct on personal THR & RPE, Instruct on MET level & personal MET goal, Show patient to take own pulse /validate performance until accurate, Instruct on home exercise and Other additional plan/int 30-day Reassessments 30 day Reassessments:: Met Physical Activity Home Exercise Physical Activity - Home Exercise: Safe Exercise, Warm-up, Self-monitoring, Cool-Down, Home Exercise > 30 min Daily and Sitting Time <3 hours/daily Outcomes & Goals Outcomes/Goals: Demonstrates correct Warm-up/exercise Cool-Down (S3) if = 2.5 METs, Verbalizes symptoms of exercise intolerance by Session 3 (S3), Demonstrate safe equipment use (S3) & follows exercise prescrition (6) and Other: See below Intervention & Plan Plan/Intervention: Instruct warm-up & cool-down if exercising at > 2 METs, Instruct on symptoms of exercise intolerance & actions to take, Instruct & monitor on saf, Assess intial functional capacity & safety risk and Other See below 30-day Reassessments 30 day Reassessments:: Met Exercise - Final/Discharge Physician Prescribed Exercise Modalities: Treadmill, Schwinn Airdyne AD-7 and SciFit Stepper Nutrition - 30-Day Assessment Weight Mgt (Other Care) Height: 6 ft 2 in Weight:: 300 lb BMI: 38.5 Nutrition - 60-Day Assessment Weight Mgt (Other Care) Height: 6 ft 2 in Weight:: 300 lb BMI: 38.5 Core - 90 Day Assessment Visit Date of Eval: 09/10/23 Session #:: 28 Medication Compliance Preventative Medication(s):: Aspirin, Clopidogrel/P2Y12 inhibit, Statin/lipid and Beta gerson H/O mental health issues: depression, anxiety, or addiction?: No Doesn?t believe in the benefits of treatment?: No Believes medications are unnecessary or harmful?: No Has a concern about medication side effects?: No Expresses concern over the cost of medications?: No Outcomes/Goals: Verbalizes medications,desired effect & common side effects @ DC, Pt self-reports following medication regimen, Keeps card in wallet w/medications listed by DC and Other additional outcome/goals: Interventions/plans: Instruct on medication effects & side effects, Review medication list w/patient every two weeks, Instruct importance of taking meds as ordered & assist problem solving and Other additional 30-day Reassessments:: Met Tobacco Use Tobacco Use: Non-smoker 30-day Reassessments:: Met Hypertension Hypertension Diagnosis:: Hypertension ICD-10 I10 Resting Blood Pressure:: 112/68 [place] [employer] Hypertension Guidelines Peak Exercise Blood Pressure:: 158/80 Outcomes/Goals: Able to verbalize/achieve optimal blood pressure <130/80, Incorporates diet changes & exercise for blood pressure control by DC and Other additional outcomes/goals Interventions/plan: Instruct on optimal blood pressure, hypertension & medications, Instruct on effects of sodium, alcohol, stress, exercise &hypertension and Other additional plan/interventions 30 day Reassessments:: Met Tobacco Cessation Referral Smoking Cessation Referral:: No Individual Education/Counseling:: No Education Schedule Given:: Yes Psychosocial - 30-Day Assess Target Goals Target Goals Psychosocial - 60-Day Assess Target Goals Target Goals Psychosocial - 90-Day Assess VIsit Date of Eval: 09/10/23 Session #:: 28 History of previous Mental disease:: No Target Goals Target Goals Outcomes/Goals: See list Psychosocial Outcomes/Goals:: ID's personal stressors & 2 strategies to manage stress by discharge and Other Additional outcome/goals: Intervention/Plan: See List Interventions/Plan:: Assess stressors,coping strategies & signs of derpression on admission, Instruct/assist pt to develop coping & personal stress Mgt strategies, Refer to Behavioral Health if appropriate, Refer to Physician if appropriate, Instruct patient to recognize signs & symptoms of depression, Instruct patient to recog and Other additional plan/intervention 30-day Reassessments: 30 day Reassessments:: Met Psychosocial - Final Assessmen Target Goals Target Goals Nutrition - 90-Day Assessment Program Goals Nutrition Program Goals Patient has diagnosis of Hyperlipidemia (ICD E78)?: Yes Visit Date of Eval: 09/10/23 Session #:: 28 Cholesterol/Lipids (Other Core Measures) Determine presence & major risk factors that modify LDL goal: Hypertension or hypertensive medication, Low HDL cholesterol <40 mg/dL*, Family history of premature CHD in Male < 55 years: female <65 yearsFa and Age men > 45 years; women >/= 55 years Outcomes/Goals: Pt IDs own risk factors & lifestyle modifications by Session 10, Verbalizes symptoms of angina & response by session 3., Pt independently manages and Other Additional Outcomes/Goals: Intervention/Plan: Advocate for lipid panel cholesterol medication if applicable, Instruct on personal lipid levels & lipid goals/NCEP guidelines, Instruct on cholesterol and Other additional plan/int 30-day Reassessments:: Met Reassessment Notes & Comments:: pt met with dietary Diabetes (Other Core Measures) Diabetes Type: Diagnosis Type II ICD-10 E11 Insulin dependent injection/pump?: Yes Non-Insulin Dependent?: Yes Do you monitor your blood sugar at home?: Yes Outcomes/Goals:: Able to state symptoms of, Able to state, Able to state and Other additional Intervention/Plan:: Instruct on, Refer to, Instruct on and Other 30-day Reassessments:: Met Weight Mgt (Other Care) Height: 6 ft 2 in Weight:: 300 lb BMI: 38.5 Diagnosis Overweight/Obesity BMI> 30% ICD-10 E66: Yes Diagnosis High BMI/Morbid Obesity BMI> 35% ICD-10 Z68: Yes Outcomes/Goals: Pt sets, maintains & shows weight loss goal & trend during rehab and Other additional outcomes/goals Intervention/Plan: Instruct on ideal BMI & set weight loss goal w/patient, Assist pt to ID & incorporate diet changes for weight loss by S9, Refer to Structured Weight Loss program as appropriate, Encourage goal of using 250- 300dcal per session for weight loss and Other additional plan/interventions 30 day Reassessments:: Met Healthy Eating Habits Will attend diet classes:: Yes Outcomes/Goals:: Consume diet rich in vegs,fruits,whole grain/high fiber,fish,lean meat, Limit sat/trans fats,cholesterol & added salts & sugars and Other additional outcome/goals: Intervention/Plan:: Assess current eating habits and Other Additional plan/interventions 30-day Reassessments:: Met Education Gave educational materials for:: Signs & symptoms of hypoglycemia, Signs & symptoms of hyperglycemia, Relate diabetes to coronary artery disease and Healthy eating Nutrition - Final Assessment Weight Mgt (Other Care) Height: 6 ft 2 in Weight:: 300 lb BMI: 38.5
[2023-09-10 07:34] VITALS: BP 112/68; BMI 38.5
== END 2023-09-30 23:59 ==
LOC: CR 15:15
PROVIDERS: PCP Student in an Organized Health Care Education/Training Program
DX: Z95.5 Presence of coronary angioplasty implant and graft (principal)
CPT/HCPCS: 93798

== ENCOUNTER 2023-10-01 11:47 | Outpatient (RCR) | payer OTHER, SELFPAY ==
[2023-09-10 07:34] VITALS: BMI 38.5
[2023-10-01 00:23] VITALS: BP 130/76; BP 132/78
== END 2023-10-31 23:59 ==
LOC: CR 11:47
PROVIDERS: PCP Student in an Organized Health Care Education/Training Program
DX: Z95.5 Presence of coronary angioplasty implant and graft (principal)
CPT/HCPCS: 93798